=== PATIENT | male | born 1955 | race Caucasian/White ===

== ENCOUNTER 2017-08-19 18:13 | Inpatient (IN) | payer BC ==
[~2017-08-19] VITALS: Ht 175.3 cm; Wt 90.4 kg
[~2017-08-19 18:13] MED LIST: ALLO300T2 PO; ASPI81TA82 PO; CARV12.5 PO; DIGO0.25 PO; FURO20 PO; LISI-357 PO; WARF5TAB PO; ZOFR4TAB3 SL
[2017-08-19 18:23] VITALS: BP 119/56; PULSE 61; RESP 20; TEMP 97.8; O2SAT 91
[2017-08-19] MEDS ORDERED: CARV20 PO (18:38)
[2017-08-19] MEDS ORDERED: FURO1TAB60 PO (18:38)
[2017-08-19] MEDS ORDERED: WARF-23 PO (18:38)
[2017-08-19] MEDS ORDERED: ASPI-516 PO (18:38)
[2017-08-19] MEDS ORDERED: LISI-519 PO (18:38)
--- NOTE | 2017-08-19 18:38 | PD ---
HPI Chief Complaint: Respiratory Symptoms Time Seen by Provider: 18:37 (Michael Turner MD) Travel History International Travel<30 days: No Contact w/Intl Traveler<30days: No Traveled to known affect area: No (Micahel Turner MD) History of Present Illness HPI Patient 62-year-old male with a history of CHF followed by [id number] gate agent presents emergency department for evaluation of increasing pedal edema shortness of breath worsening over the past 4 days.. Patient states that he was feeling very lousy tonight and he was getting up to call 911 to bring him to the hospital when he felt very dizzy and fell hitting his head as well as his knee. He is unsure of any loss of consciousness. Denies any chest pain denies any abdominal pain nausea vomiting. Does not recall his last ejection fraction. He is on Coumadin for atrial fibrillation. Symptoms are moderate, context as above, duration is above, gradually worsening (Michael Turner MD) PFSH Past Medical History Hx Anticoagulant Therapy: Yes (WARFARIN) Atrial Fibrillation: Yes Cardiovascular Problems: Yes Diabetes: Yes (PT REPORT DOES NOT TAKE MED JUST DIET) Patient Takes Glucophage: No Diminished Hearing: No Hypertension: Yes Myocardial Infarction: Yes (STENTS) Influenza Vaccination: Yes (Michael Turner MD) Past Surgical History AICD: Yes Coronary Artery Bypass Graft: Yes (X3) (Michael Turner MD) Social History Alcohol Use: Yes (OCASSIONALLY) Tobacco Use: No (QUIT 20 YEARS AGO) Substance Use: No (Michael Turner MD) Allergies-Medications (Allergen,Severity, Reaction): Coded Allergies: No Known Allergies (Verified Adverse Reaction, Unknown, 08/19/17) Reported Meds & Prescriptions Reported Meds & Active Scripts Active Reported Digoxin 0.25 Mg Tab 0.25 Mg PO DAILY Aspirin 81 Mg Chew 81 Mg PO ONCE Lisinopril 5 Mg Tab 5 Mg PO DAILY Coreg Cr 24 HR (Carvedilol) 20 Mg Cap 20 Mg PO DAILY Warfarin 5 Mg Tab 5 Mg PO DAILY Lasix (Furosemide) 40 Mg Tab 40 Mg PO BID (Andrey Marie) Review of Systems Except as stated in HPI: all other systems reviewed are Neg (Michael Turner MD) Physical Exam Narrative GENERAL: Well-developed well-nourished, no obvious distress. SKIN: Focused skin assessment warm/dry. HEAD: Atraumatic. Normocephalic. EYES: Pupils equal and round. No scleral icterus. No injection or drainage. ENT: No nasal bleeding or discharge. Mucous membranes pink and moist. NECK: Trachea midline. No JVD. CARDIOVASCULAR: Regular rate and rhythm. No murmur appreciated. 2+ bilateral equal pulses in all 4 extremities. RESPIRATORY: faint bibasilar rales, breath sounds are equal bilaterally, mild increased work of breathing. GASTROINTESTINAL: Abdomen soft, non-tender, nondistended. Hepatic and splenic margins not palpable. MUSCULOSKELETAL: No obvious deformities. No clubbing. No cyanosis. Patient has significant edema of his lower extremities including, also some edema of his upper extremities of the hands. NEUROLOGICAL: Awake and alert. No obvious cranial nerve deficits. Motor grossly within normal limits. Normal speech. PSYCHIATRIC: Appropriate mood and affect; insight and judgment normal. (Michael Turner MD) Data Data Last Documented VS Vital Signs Date Time Temp Pulse Resp B/P (MAP) Pulse Ox O2 Delivery O2 Flow Rate FiO2 08/19/17 18:40 95 Nasal Cannula 3.00 08/19/17 18:40 20 08/19/17 18:31 64 08/19/17 18:23 97.8 119/56 (77) (Andrey Marie) Orders Orders Electrocardiogram (08/19/17 ) Electrocardiogram (08/19/17 18:37) Ckmb (Isoenzyme) Profile (08/19/17 18:37) Complete Blood Count With Diff (08/19/17 18:37) Comprehensive Metabolic Panel (08/19/17 18:37) Magnesium (Mg) (08/19/17 18:37) Prothrombin Time / Inr (Pt) (08/19/17 18:37) Act Partial Throm Time (Ptt) (08/19/17 18:37) Troponin I (08/19/17 18:37) Chest, Single Ap (08/19/17 18:37) Ecg Monitoring (08/19/17 18:37) Iv Access Insert/Monitor (08/19/17 18:37) Oximetry (08/19/17 18:37) Oxygen Administration (08/19/17 18:37) Aspirin Chew (Aspirin Chew) (08/19/17 18:45) Sodium Chloride 0.9% Flush (Ns Flush) (08/19/17 18:45) Furosemide Inj (Lasix Inj) (08/19/17 18:45) Ct Brain W/O Iv Contrast(Rout) (08/19/17 ) Knee, Complete (4vws) (08/19/17 ) (Andrey Marie) Labs Laboratory Tests Test 08/19/17 18:40 (Andrey Marie) MDM Medical Decision Making Medical Screen Exam Complete: Yes Emergency Medical Condition: Yes Differential Diagnosis CHF exacerbation, pulmonary edema, ACS, AMI, head injury, Narrative Course Patient roomed in emergency department found to have a room air sat of 89%. On 3 L nasal cannula niesha to 93%. He is not on home oxygen. He does have AICD suggesting more severe heart failure. Battery of test was ordered including basic labs cardiac markers, chest x-ray CT of the head and creatinine. Patient will be discussed with the oncoming provider Dr. Campos at 1900 to follow-up the workup and disposition the patient. (Michael Turner MD) Michael Turner MD Aug 19, 2017 18:38 Andrey Marie Aug 19, 2017 19:30
[2017-08-19] MEDS ORDERED: DIGO0.25 PO (18:39)
[2017-08-19 18:40] VITALS: RESP 20; O2SAT 95
[2017-08-19] MEDS ORDERED: ASPIRIN 81 MG CHEW TAB PO ONE (18:45)
[2017-08-19] MEDS ORDERED: SODIUM CHLORIDE 0.9% FLUSH 10 ML FLUSH IVF PRN (18:45)
[2017-08-19] MEDS ORDERED: FUROSEMIDE 100 MG/10 ML VIAL IV PUSH ONE (18:45)
[2017-08-19 19:10] VITALS: BP 112/59; PULSE 64; RESP 20; TEMP 97.8; O2SAT 95
[2017-08-19 19:30] LABS: AUTOMATED NEUTROPHIL # 3.7 TH/MM3 (1.8-7.7); BASOPHIL # 0.1 TH/MM3 (0-0.2); BASOPHIL % 1.1 % (0.0-2.0); EOSINOPHIL # 0.3 TH/MM3 (0-0.4); EOSINOPHIL % 4.6 % (0.0-4.0); HEMATOCRIT 29.3 % (39.0-51.0); MEAN CELL VOLUME 101.3 FL (80.0-100.0); MEAN CORPUSCULAR HEMOGLOBIN 36.6 PG (27.0-34.0); MONO % 17.6 % (0.0-8.0); NEUT % 60.7 % (16.0-70.0); PLATELET COUNT 139 TH/MM3 (150-450); RED CELL DISTRIBUTION WIDTH 14.5 % (11.6-17.2); WHITE BLOOD COUNT 6.1 TH/MM3 (4.0-11.0)
--- NOTE | 2017-08-19 19:31 | RADRPT ---
EXAM DATE/TIME: 08/19/2017 18:57 [facility] COMPARISON: No previous studies available for comparison. INDICATIONS : Shortness of breath. Syncope today. MEDICAL HISTORY : Cirrhosis of liver. SURGICAL HISTORY : Pacemaker. Triple bypass, ENCOUNTER: Initial ACUITY: 1 day PAIN SCORE: 0/10 LOCATION: Bilateral chest FINDINGS: The patient is status post sternotomy. Heart size is enlarged. There is a pacing device/AICD in place from a left subclavian approach. The lungs are grossly clear. No effusion is seen. There is degenera tive change with hypertrophy at the left humeral head. There is also suspected loose bodies inferior to the left humeral head and in the subscapularis fossa at the left glenohumeral joint. CONCLUSION: 1. Cardiomegaly. The patient is status post sternotomy and has a pacing/AICD device in place. 2. Degenerative change and loose bodies of the left glenohumeral joint. Ralph English MD on August 19, 2017 at 19:27 Board Certified Radiologist. This report was verified electronically.
--- NOTE | 2017-08-19 19:31 | RADRPT ---
EXAM DATE/TIME: 08/19/2017 18:58 [facility] COMPARISON: No previous studies available for comparison. INDICATIONS : Syncope today. Knee pain. MEDICAL HISTORY : None. SURGICAL HISTORY : None. ENCOUNTER: Initial ACUITY: 1 day PAIN SCORE: 3/10 LOCATION: Right abrasion on top of knee FINDINGS: Four view examination of the right knee demonstrates no evidence of fracture or dislocation. Bony mi neralization is normal. The articular surfaces are intact. The suprapatellar soft tissues have a no rmal configuration. Vascular calcifications are seen. Clips are seen in the medial soft tissues. CONCLUSION: No acute disease. Ralph English MD on August 19, 2017 at 19:30 Board Certified Radiologist. This report was verified electronically.
[2017-08-19 19:33] LABS: MEAN CORPUSCULAR HGB CONC 36.1 % (32.0-36.0)
--- NOTE | 2017-08-19 19:33 | RADRPT ---
EXAM DATE/TIME: 08/19/2017 18:56 [facility] COMPARISON: No previous studies available for comparison. INDICATIONS : Trauma, fall. Hit forehead. RADIATION DOSE: 56.35 CTDIvol (mGy) MEDICAL HISTORY : Hypertension. Diabetes mellitus type 2. SURGICAL HISTORY : None. ENCOUNTER: Initial ACUITY: 1 day PAIN SCALE: 0/10 LOCATION: cranial TECHNIQUE: Multiple contiguous axial images were obtained of the head. Using automated exposure control and adj ustment of the mA and/or kV according to patient size, radiation dose was kept as low as reasonably a chievable to obtain optimal diagnostic quality images. DICOM format image data is available electro nically for review and comparison. FINDINGS: CEREBRUM: The ventricles are normal for age. No evidence of midline shift, mass lesion, hemorrhage or acute in farction. No extra-axial fluid collections are seen. POSTERIOR FOSSA: The cerebellum and brainstem are intact. The 4th ventricle is midline. The cerebellopontine angle i s unremarkable. EXTRACRANIAL: The visualized portion of the orbits is intact. SKULL: The calvaria is intact. No evidence of skull fracture. CONCLUSION: Normal examination. Ralph English MD on August 19, 2017 at 19:31 Board Certified Radiologist. This report was verified electronically.
[2017-08-19 19:34] LABS: HEMO FLAGS AUTO DIFF
[2017-08-19 19:42] LABS: INTERNATIONAL NORMALIZED RATIO 2.6 RATIO; PROTHROMBIN TIME - PATIENT 29.6 SEC (9.8-11.6)
[2017-08-19 19:53] LABS: ANION GAP 9 MEQ/L (5-15); AST (GOT) 29 U/L (15-37); BICARBONATE 20.9 MEQ/L (21.0-32.0); BLOOD UREA NITROGEN 53 MG/DL (7-18); CHLORIDE 100 MEQ/L (98-107); GLOMERULAR FILTRATION RATE 26 ML/MIN (>89); MAGNESIUM 2.3 MG/DL (1.5-2.5); SODIUM (NA) 130 MEQ/L (136-145)
[2017-08-19 19:54] LABS: APTT (PATIENT) 40.3 SEC (24.3-30.1)
[2017-08-19 19:59] LABS: ALKALINE PHOSPHATASE 143 U/L (45-117); ALT (GPT) 30 U/L (12-78); CREATINE KINASE 238 U/L (39-308); TOTAL BILIRUBIN ADULT 1.9 MG/DL (0.2-1.0)
[2017-08-19 20:10] VITALS: BP 112/57; PULSE 62; RESP 19; TEMP 98; O2SAT 94
[2017-08-19 20:12] LABS: CKMB 1.9 NG/ML (0.5-3.6)
[2017-08-19 20:15] LABS: PLATELET ESTIMATE SMEAR LOW (NORMAL); PLATELET MORPHOLOGY ENLARGED (NORMAL); SCAN/DIFF AUTO DIFF CONFIRMED
--- NOTE | 2017-08-19 20:36 | PD ---
Physical Exam Date Seen by Provider: Aug 19, 2017 Time Seen by Provider: 19:30 Narrative Patient signed out to me by Dr. Turner, please see Dr. Turner's note for further details. Here for worsening shortness of breath, dyspnea on exertion, syncope, has been given Lasix, awaiting further lab work and planning to admit for further treatment. Laboratory Tests Test 08/19/17 18:40 Red Blood Count 2.90 MIL/MM3 (4.50-5.90) Hemoglobin 10.6 GM/DL (13.0-17.0) Hematocrit 29.3 % (39.0-51.0) Mean Corpuscular Volume 101.3 FL (80.0-100.0) Mean Corpuscular Hemoglobin 36.6 PG (27.0-34.0) Mean Corpuscular Hemoglobin Concent 36.1 % (32.0-36.0) Platelet Count 139 TH/MM3 (150-450) Monocytes (%) (Auto) 17.6 % (0.0-8.0) Eosinophils (%) (Auto) 4.6 % (0.0-4.0) Monocytes # (Auto) 1.1 TH/MM3 (0-0.9) Platelet Estimate LOW (NORMAL) Platelet Morphology Comment ENLARGED (NORMAL) Prothrombin Time 29.6 SEC (9.8-11.6) Activated Partial Thromboplast Time 40.3 SEC (24.3-30.1) Blood Urea Nitrogen 53 MG/DL (7-18) Creatinine 2.50 MG/DL (0.60-1.30) Total Protein 8.8 GM/DL (6.4-8.2) Albumin 3.3 GM/DL (3.4-5.0) Alkaline Phosphatase 143 U/L (45-117) Total Bilirubin 1.9 MG/DL (0.2-1.0) Sodium Level 130 MEQ/L (136-145) Carbon Dioxide Level 20.9 MEQ/L (21.0-32.0) Estimat Glomerular Filtration Rate 26 ML/MIN (>89) Last 24 hours Impressions Chest X-Ray 08/19/17 [id number] Signed Impressions: Service Date/Time: Saturday, August 19, 2017 18:57 - CONCLUSION: 1. Cardiomegaly. The patient is status post sternotomy and has a pacing/AICD device in place. 2. Degenerative change and loose bodies of the left glenohumeral joint. Ralph English MD Knee X-Ray 08/19/17 0000 Signed Impressions: Service Date/Time: Saturday, August 19, 2017 18:58 - CONCLUSION: No acute disease. Ralph English MD Head CT 08/19/17 0000 Signed Impressions: Service Date/Time: Saturday, August 19, 2017 18:56 - CONCLUSION: Normal examination. Ralph English MD CT the brain is negative. Patient's lab work reveals worsening kidney functions , concerning for acute renal failure as well as underlying CHF. Planning to admit for further treatment. Case is discussed with Dr. Johnson for admission. Data Data Last Documented VS Vital Signs Date Time Temp Pulse Resp B/P (MAP) Pulse Ox O2 Delivery O2 Flow Rate FiO2 08/19/17 19:10 97.8 64 20 112/59 (76) 95 Nasal Cannula 3.00 Orders Orders Electrocardiogram (08/19/17 ) Electrocardiogram (08/19/17 18:37) Ckmb (Isoenzyme) Profile (08/19/17 18:37) Complete Blood Count With Diff (08/19/17 18:37) Comprehensive Metabolic Panel (08/19/17 18:37) Magnesium (Mg) (08/19/17 18:37) Prothrombin Time / Inr (Pt) (08/19/17 18:37) Act Partial Throm Time (Ptt) (08/19/17 18:37) Troponin I (08/19/17 18:37) Chest, Single Ap (08/19/17 18:37) Ecg Monitoring (08/19/17 18:37) Iv Access Insert/Monitor (08/19/17 18:37) Oximetry (08/19/17 18:37) Oxygen Administration (08/19/17 18:37) Aspirin Chew (Aspirin Chew) (08/19/17 18:45) Sodium Chloride 0.9% Flush (Ns Flush) (08/19/17 18:45) Furosemide Inj (Lasix Inj) (08/19/17 18:45) Ct Brain W/O Iv Contrast(Rout) (08/19/17 ) Knee, Complete (4vws) (08/19/17 ) CKMB (08/19/17 18:40) CKMB% (08/19/17 18:40) Admit Order (Ed Use Only) (08/19/17 20:34) Labs Laboratory Tests Test 08/19/17 18:40 White Blood Count 6.1 TH/MM3 Red Blood Count 2.90 MIL/MM3 Hemoglobin 10.6 GM/DL Hematocrit 29.3 % Mean Corpuscular Volume 101.3 FL Mean Corpuscular Hemoglobin 36.6 PG Mean Corpuscular Hemoglobin Concent 36.1 % Red Cell Distribution Width 14.5 % Platelet Count 139 TH/MM3 Mean Platelet Volume 9.5 FL Neutrophils (%) (Auto) 60.7 % Lymphocytes (%) (Auto) 16.0 % Monocytes (%) (Auto) 17.6 % Eosinophils (%) (Auto) 4.6 % Basophils (%) (Auto) 1.1 % Neutrophils # (Auto) 3.7 TH/MM3 Lymphocytes # (Auto) 1.0 TH/MM3 Monocytes # (Auto) 1.1 TH/MM3 Eosinophils # (Auto) 0.3 TH/MM3 Basophils # (Auto) 0.1 TH/MM3 CBC Comment AUTO DIFF Differential Comment AUTO DIFF CONFIRMED Platelet Estimate LOW Platelet Morphology Comment ENLARGED Prothrombin Time 29.6 SEC Prothromb Time International Ratio 2.6 RATIO Activated Partial Thromboplast Time 40.3 SEC Blood Urea Nitrogen 53 MG/DL Creatinine 2.50 MG/DL Random Glucose 99 MG/DL Total Protein 8.8 GM/DL Albumin 3.3 GM/DL Calcium Level 8.5 MG/DL Magnesium Level 2.3 MG/DL Alkaline Phosphatase 143 U/L Aspartate Amino Transf (AST/SGOT) 29 U/L Alanine Aminotransferase (ALT/SGPT) 30 U/L Total Bilirubin 1.9 MG/DL Sodium Level 130 MEQ/L Potassium Level 4.0 MEQ/L Chloride Level 100 MEQ/L Carbon Dioxide Level 20.9 MEQ/L Anion Gap 9 MEQ/L Estimat Glomerular Filtration Rate 26 ML/MIN Total Creatine Kinase 238 U/L Creatine Kinase MB 1.9 NG/ML Troponin I 0.02 NG/ML [facility] Medical Record Reviewed: Yes Supervised Visit with TARIK: No Diagnosis Primary Impression: CHF exacerbation Additional Impression: Acute renal failure (ARF) Admitting Information Admitting Physician Requests: Admit Gina Munoz MD Aug 19, 2017 20:36
--- NOTE | 2017-08-19 20:38 | HHI.HP ---
[facility] Unknown Admission Diagnosis CHF exacerbation/syncope/acute renal failure Diagnoses: (1) CHF (congestive heart failure) Diagnosis: Principal (2) TOMMY (acute kidney injury) Diagnosis: Principal (3) Fall Diagnosis: Principal (4) A-fib Diagnosis: Principal (5) Thrombocytopenia Diagnosis: Principal Travel History International Travel<30 Days: No Contact w/Intl Traveler <30 Da: No Traveled to Known Affected Are: No History of Present Illness This is a 62-year-old male with a PMH of HTN, CHF (Unknown EF), A. fib on Coumadin and Diet Controlled DM who presented to the ER w/ complaints of dizziness, SOB and progressive lower extremity edema x3-4 days. 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 Denies recent changes to medications, reports compliance w/ meds. States dizziness worse w/ standing, tonight had near syncopal event w/ fall, hit head. On arrival, BP 119/56, HR 61, O2 sat 91 % on RA, Afebrile. Hemoglobin 10.6, previously 15.1 on 11/13/15. Platelets 139 , previously 178. Creatinine 2.50, producing 1.18 on 11/13/15. Troponin negative. INR 2.6. CXR with cardiomegaly. CT Head normal. Knee X-ray with no acute findings. S/p Lasix 80mg IV in ER. Review of Systems Except as stated in HPI: all other systems reviewed are Neg ROS: 14 point review of systems otherwise negative. Past Family Social History Past Medical History PMH: HTN, CHF (Unknown EF), A. fib on Coumadin and Diet Controlled DM Past Surgical History PAST SURGICAL HISTORY: AICD, CABG Allergies: Coded Allergies: No Known Allergies (Verified Allergy, Unknown, 08/19/17) Family History PAST FAMILY HISTORY: Reviewed. No h/o DM or CAD Social History PAST SOCIAL HISTORY: Occasional alcohol. Negative for tobacco or drugs. Physical Exam Vital Signs Vital Signs Date Time Temp Pulse Resp B/P (MAP) Pulse Ox O2 Delivery O2 Flow Rate FiO2 08/19/17 19:10 97.8 64 20 112/59 (76) 95 Nasal Cannula 3.00 08/19/17 18:40 95 Nasal Cannula 3.00 08/19/17 18:40 20 95 Nasal Cannula 3.00 08/19/17 18:31 64 20 95 Nasal Cannula 3.00 08/19/17 18:23 97.8 61 20 119/56 (77) 91 Physical Exam PE: GENERAL: Pleasant middle-aged white male in no acute distress. HEENT: PERRLA, EOMI. No scleral icterus or conjunctival pallor. No lid lag or facial droop. +abrasion to forehead. CARDIOVASCULAR: Regular rate and rhythm. No obvious murmurs to auscultation. No chest tenderness to palpation. RESPIRATORY: No obvious rhonchi or wheezing. Clear to auscultation. Breath sounds equal bilaterally. GASTROINTESTINAL: Abdomen soft, non-tender, nondistended. BS normal. MUSCULOSKELETAL: Extremities without clubbing, cyanosis. 2-3+ edema bilateral lower extremities. No obvious deformities. NEUROLOGICAL: Awake, alert and oriented x4. No focal neurologic deficits. Moving both upper and lower extremities spontaneously. Laboratory Laboratory Tests Test 08/19/17 18:40 White Blood Count 6.1 Red Blood Count 2.90 Hemoglobin 10.6 Hematocrit 29.3 Mean Corpuscular Volume 101.3 Mean Corpuscular Hemoglobin 36.6 Mean Corpuscular Hemoglobin Concent 36.1 Red Cell Distribution Width 14.5 Platelet Count 139 Mean Platelet Volume 9.5 Neutrophils (%) (Auto) 60.7 Lymphocytes (%) (Auto) 16.0 Monocytes (%) (Auto) 17.6 Eosinophils (%) (Auto) 4.6 Basophils (%) (Auto) 1.1 Neutrophils # (Auto) 3.7 Lymphocytes # (Auto) 1.0 Monocytes # (Auto) 1.1 Eosinophils # (Auto) 0.3 Basophils # (Auto) 0.1 CBC Comment AUTO DIFF Differential Comment AUTO DIFF CONFIRMED Platelet Estimate LOW Platelet Morphology Comment ENLARGED Prothrombin Time 29.6 Prothromb Time International Ratio 2.6 Activated Partial Thromboplast Time 40.3 Blood Urea Nitrogen 53 Creatinine 2.50 Random Glucose 99 Total Protein 8.8 Albumin 3.3 Calcium Level 8.5 Magnesium Level 2.3 Alkaline Phosphatase 143 Aspartate Amino Transf (AST/SGOT) 29 Alanine Aminotransferase (ALT/SGPT) 30 Total Bilirubin 1.9 Sodium Level 130 Potassium Level 4.0 Chloride Level 100 Carbon Dioxide Level 20.9 Anion Gap 9 Estimat Glomerular Filtration Rate 26 Total Creatine Kinase 238 Creatine Kinase MB 1.9 Troponin I 0.02 Result Diagram: 08/19/17183908/19/171839 Caprini VTE Risk Assessment Caprini VTE Risk Assessment: Mod/High Risk (score >= 2) Caprini Risk Assessment Model Point Value = 1 Point Value = 2 Point Value = 3 Point Value = 5 Age 41-60 Minor surgery BMI > 25 kg/m2 Swollen legs Varicose veins or History of unexplained or recurrent spontaneous Oral contraceptives or hormone replacement Sepsis (< 1 month) Serious lung disease, including pneumonia (< 1 month) Abnormal pulmonary function Acute myocardial infarction Congestive heart failure (< 1 month) History of inflammatory bowel disease Medical patient at bed rest Age 61-74 Arthroscopic surgery Major open surgery (> 45 min) Laparoscopic surgery (> 45 min) Malignancy Confined to bed (> 72 hours) Immobilizing plaster cast Central venous access Age >= 75 History of VTE Family history of VTE Factor V Leiden Prothrombin [id number] Lupus anticoagulant Anticardiolipin antibodies Elevated serum homocysteine Heparin-induced thrombocytopenia Other congenital or acquired thrombophilia Stroke (< 1 month) Elective arthroplasty Hip, pelvis, or leg fracture Acute spinal cord injury (< 1 month) Prophylaxis Regimen Total Risk Factor Score Risk Level Prophylaxis Regimen 0-1 Low Early ambulation 2 Moderate Order ONE of the following: *Sequential Compression Device (SCD) *Heparin 5000 units SQ BID 3-4 Higher Order ONE of the following medications: *Heparin 5000 units SQ TID *Enoxaparin/Lovenox 40 mg SQ daily (WT < 150 kg, CrCl > 30 mL/min) *Enoxaparin/Lovenox 30 mg SQ daily (WT < 150 kg, CrCl > 10-29 mL/min) *Enoxaparin/Lovenox 30 mg SQ BID (WT < 150 kg, CrCl > 30 mL/min) AND/OR *Sequential Compression Device (SCD) 5 or more Highest Order ONE of the following medications: *Heparin 5000 units SQ TID (Preferred with Epidurals) *Enoxaparin/Lovenox 40 mg SQ daily (WT < 150 kg, CrCl > 30 mL/min) *Enoxaparin/Lovenox 30 mg SQ daily (WT < 150 kg, CrCl > 10-29 mL/min) *Enoxaparin/Lovenox 30 mg SQ BID (WT < 150 kg, CrCl > 30 mL/min) AND *Sequential Compression Device (SCD) Assessment and Plan Problem List: (1) CHF (congestive heart failure) ICD Code: I50.9 - Heart failure, unspecified (2) Fall ICD Code: W19.XXXA - Unspecified fall, initial encounter (3) Thrombocytopenia ICD Code: D69.6 - Thrombocytopenia, unspecified (4) A-fib ICD Code: I48.91 - Unspecified atrial fibrillation (5) TOMMY (acute kidney injury) ICD Code: N17.9 - Acute kidney failure, unspecified Assessment and Plan A/P: 1. CHF: Acute on Chronic. Unknown EF. CXR w/ no acute findings, images reviewed by me, significant lower extremity edema bilaterally. S/p Lasix 80mg IV in ER, caution w/ renal function. Continue w/ diuresis, Monitor I/O. Check Echo. 2. Fall: s/p near syncopal event w/ fall/head injury secondary to dizziness upon standing, likely from over-diuresis. +forehead and knee abrasion, superficial. CT Head w/ no acute findings, Knee X-ray negative for fracture, images reviewed by me. 3. TOMMY: Creatinine 2.50, previously 1.18 on 11/13/15, gentle hydration-caution w/ CHF. Repeat labs in am. Monitor I/O as above. Hold Lisinopril in light of TOMMY. 4. A-fib: Chronic. Resume home Digoxin. On Coumadin, INR 2.6, resume Coumadin, repeat labs in am. 5. Thrombocytopenia: Platelets 139, previously 178 on 11/13/15. No active bleeding. Will monitor closely in light of anticoagulation. Repeat labs in am. 6. DVT Prophylaxis: Resume home Coumadin 7. Social work for d/c planning as needed. 8. Case discussed w/ ER physician at length. Physician Certification 2 Midnight Certification Type: Admission for Inpatient Services Order for Inpatient Services The services are ordered in accordance with Medicare regulations or non- Medicare payer requirements, as applicable. In the case of services not specified as inpatient-only, they are appropriately provided as inpatient services in accordance with the 2-midnight benchmark. Estimated LOS (days): 2 days is the estimated time the patient will need to remain in the hospital, assuming treatment plan goals are met and no additional complications. Post-Hospital Plan: Not yet determined Shital Johnson MD Aug 19, 2017 20:38
[2017-08-19] MEDS ORDERED: ACETAMINOPHEN/HYDROcodone 325 MG/5 MG TAB PO PRN (20:45)
[2017-08-19] MEDS ORDERED: LACTULOSE SYRUP 20 GM/30 ML CUP PO PRN (20:45)
[2017-08-19] MEDS ORDERED: ONDANSETRON HCL 4 MG/2 ML VIAL IVP PRN (20:45)
[2017-08-19] MEDS ORDERED: SENNOSIDES 8.6 MG TAB PO PRN (20:45)
[2017-08-19] MEDS ORDERED: MORPHINE SULFATE 4 MG/ML INJ IV PUSH PRN (20:45)
[2017-08-19] MEDS ORDERED: ACETAMINOPHEN 325 MG TAB PO PRN (20:45)
[2017-08-19] MEDS ORDERED: MAGNESIUM HYDROXIDE SUSP 30 ML CUP PO PRN (20:45)
[2017-08-19] MEDS ORDERED: SODIUM CHLORIDE 0.9% FLUSH 10 ML FLUSH IV FLUSH PRN (20:45)
[2017-08-19] MEDS ORDERED: ASPIRIN 81 MG CHEW TAB PO SCH (20:45)
[2017-08-19] MEDS ORDERED: BISACODYL 10 MG SUPP RECTAL PRN (20:45)
[2017-08-19] MEDS ORDERED: DEXT 5%-NACL 0.9% 500 ML INJ 500 ML IV ONE (21:15)
[2017-08-19] MEDS: SODIUM CHLORIDE 0.9% FLUSH 10 ML FLUSH IV FLUSH SCH (21:28)
[2017-08-19] MEDS: DOCUSATE SODIUM 50 MG/SENNA 8.6 MG TAB PO SCH (21:28)
[2017-08-19 21:29] VITALS: BP 104/69; PULSE 59; RESP 20; TEMP 97.9; O2SAT 95
[2017-08-19 23:00] VITALS: PULSE 57
[2017-08-20] VITALS (7 sets, daily range): BP systolic 90–121; BP diastolic 50–59; PULSE 54–75; RESP 16–20; TEMP 97.3–97.9; O2SAT 90–94
[2017-08-20] MEDS ORDERED: DEXT 5%-NACL 0.45% 500 ML INJ 500 ML IV ONE (05:00)
[2017-08-20 07:31] LABS: AUTOMATED NEUTROPHIL # 2.8 TH/MM3 (1.8-7.7); EOSINOPHIL # 0.3 TH/MM3 (0-0.4); EOSINOPHIL % 5.3 % (0.0-4.0); HEMATOCRIT 29.2 % (39.0-51.0); HEMO FLAGS DIFF FINAL; LYMPH % 23.4 % (9.0-44.0); LYMPHOCYTE # 1.1 TH/MM3 (1.0-4.8); MEAN CELL VOLUME 100.3 FL (80.0-100.0); MEAN CORPUSCULAR HEMOGLOBIN 34.7 PG (27.0-34.0); MEAN CORPUSCULAR HGB CONC 34.6 % (32.0-36.0); MONO % 14.1 % (0.0-8.0); NEUT % 56.2 % (16.0-70.0); PLATELET COUNT 134 TH/MM3 (150-450); RED BLOOD COUNT 2.92 MIL/MM3 (4.50-5.90); RED CELL DISTRIBUTION WIDTH 14.1 % (11.6-17.2); WHITE BLOOD COUNT 4.9 TH/MM3 (4.0-11.0)
[2017-08-20 07:34] LABS: INTERNATIONAL NORMALIZED RATIO 2.8 RATIO; PROTHROMBIN TIME - PATIENT 32.3 SEC (9.8-11.6)
[2017-08-20 08:02] LABS: ANION GAP 10 MEQ/L (5-15); AST (GOT) 28 U/L (15-37); BICARBONATE 19.8 MEQ/L (21.0-32.0); BLOOD UREA NITROGEN 52 MG/DL (7-18); CHLORIDE 103 MEQ/L (98-107); GLOMERULAR FILTRATION RATE 28 ML/MIN (>89); POTASSIUM 3.5 MEQ/L (3.5-5.1); SODIUM (NA) 133 MEQ/L (136-145)
[2017-08-20 08:03] LABS: ALT (GPT) 26 U/L (12-78)
[2017-08-20 08:07] LABS: ALKALINE PHOSPHATASE 115 U/L (45-117)
[2017-08-20 08:55] LABS: MAGNESIUM 2.2 MG/DL (1.5-2.5)
[2017-08-20] MEDS: FUROSEMIDE 40 MG/4 ML VIAL IV PUSH SCH ×2 (09:00→17:43)
[2017-08-20] MEDS: CARVEDILOL 6.25 MG TAB PO SCH ×2 (09:00→21:00)
[2017-08-20] MEDS: SODIUM CHLORIDE 0.9% FLUSH 10 ML FLUSH IV FLUSH SCH ×2 (09:00→21:41)
[2017-08-20] MEDS ORDERED: WARFARIN SOD 5 MG TAB PO SCH (09:00)
--- NOTE | 2017-08-20 09:21 | EKG ---
Date Performed: 08/19/2017 Time Performed: 18:32:42 PTAGE: 62 years EKG: ATRIAL FIBRILLATION BORDERLINE RIGHT AXIS DEVIATION LOW QRS VOLTAGE IN EXTREMITY LEADS ST D EVIATION AND MODERATE T-WAVE ABNORMALITY, CONSIDER LATERAL ISCHEMIA Compared to prior tracing no sign ificant change ABNORMAL ECG PREVIOUS TRACING : 08/19/2017 18.31 DOCTOR: Luis Bennett Interpretating Date/Time 08/22/2017 07:07:11
[2017-08-20] MEDS: DOCUSATE SODIUM 50 MG/SENNA 8.6 MG TAB PO SCH ×2 (10:07→21:40)
[2017-08-20] MEDS: ASPIRIN 81 MG CHEW TAB PO SCH (10:08)
[2017-08-20] MEDS: DIGOXIN 0.25 MG TAB PO SCH (10:08)
--- NOTE | 2017-08-20 11:52 | HHI.PR ---
Subjective Remarks Follow-up for CHF exacerbation and questionable acute on chronic renal sufficiency Patient stated that after Lasix was given history breathing has improved drastically. He continues to be short of breath but with great improvement. Positive dry cough. Remains afebrile. [place] He stated that he is on Lasix 40 mg by mouth twice a day at home. Patient also admits to eating out a lot. He stated that he was told by multiple doctors that he eats too much sodium. His nurse is at the bedside during the interview. Objective Vitals Vital Signs Date Time Temp Pulse Resp B/P (MAP) Pulse Ox O2 Delivery O2 Flow Rate FiO2 08/20/17 08:00 58 08/20/17 08:00 Nasal Cannula 3.50 08/20/17 04:00 97.9 60 16 90/50 (63) 92 08/20/17 00:00 97.3 61 18 96/56 (69) 94 08/19/17 23:00 57 08/19/17 21:56 08/19/17 21:29 97.9 59 20 104/69 (81) 95 Nasal Cannula 3.00 08/19/17 20:10 98.0 62 19 112/57 (75) 94 08/19/17 20:00 94 Nasal Cannula 3.50 08/19/17 19:10 97.8 64 20 112/59 (76) 95 Nasal Cannula 3.00 08/19/17 18:40 95 Nasal Cannula 3.00 08/19/17 18:40 20 95 Nasal Cannula 3.00 08/19/17 18:31 64 20 95 Nasal Cannula 3.00 08/19/17 18:23 97.8 61 20 119/56 (77) 91 I/O 08/19/17 08/19/17 08/19/17 08/20/17 08/20/17 08/20/17 07:00 15:00 23:00 07:00 15:00 23:00 Intake Total 240 ml Output Total 600 ml 1350 ml Balance -600 ml -1110 ml Intake Oral 240 ml Output Urine Total 600 ml 1350 ml # Voids 1 # Bowel Movements 0 0 Result Diagram: 08/20/1761208/20/17612 Objective Remarks GENERAL: in NAD NECK: Supple, trachea midline. No JVD or lymphadenopathy. CARDIOVASCULAR: Regular rate and rhythm without murmurs, gallops, or rubs. RESPIRATORY: No accessory muscle use. GASTROINTESTINAL: Abdomen soft, non-tender, nondistended. MUSCULOSKELETAL: No cyanosis, trace to +1 lower extremity edema. Medications and IVs Current Medications Aspirin (Aspirin Chew) 324 mg ONCE ONCE PO Last administered on 08/19/17 18: 46; Start 08/19/17 at 18:45; Stop 08/19/17 at 18:46; Status DC Sodium Chloride (NS Flush) 2 ml UNSCH PRN IVF FLUSH AFTER USING IV ACCESS Last administered on 08/19/17 18:46; Start 08/19/17 at 18:45; Stop 08/20/17 at 05 :06; Status DC Furosemide (Lasix Inj) 80 mg ONCE ONCE IV PUSH Last administered on 18:46; Start 08/19/17 at 18:45; Stop 08/19/17 at 18:46; Status DC Furosemide (Lasix Inj) 40 mg BID@,18 IV PUSH ; Start 08/20/17 at 09:00 Sodium Chloride (NS Flush) 2 ml UNSCH PRN IV FLUSH FLUSH AFTER USING IV ACCESS ; Start 08/19/17 at 20:45 Sodium Chloride (NS Flush) 2 ml BID IV FLUSH Last administered on 08/20/17 09 :00; Start 08/19/17 at 21:00 Ondansetron HCl (Zofran Inj) 4 mg Q6H PRN IVP NAUSEA OR VOMITING; Start at 20:45 Acetaminophen (Tylenol) 650 mg Q6H PRN PO FEVER/PAIN SCALE 1 TO 2; Start 08/19 at 20:45 Acetaminophen/ Hydrocodone Bitart ([place] 5-325 Mg) 1 tab Q4H PRN PO PAIN SCALE 3 TO 5; Start 08/19/17 at 20:45 Morphine Sulfate (Morphine Inj) 2 mg Q3H PRN IV PUSH PAIN SCALE 6-10; Start at 20:45 Senna/Docusate Sodium (Dana-Colace) 1 tab BID PO Last administered on 10:07; Start 08/19/17 at 21:00 Magnesium Hydroxide (Milk Of Magnesia Liq) 30 ml Q12H PRN PO Mild constipation ; Start 08/19/17 at 20:45 Sennosides (Senokot) 17.2 mg Q12H PRN PO Moderate constipation; Start at 20:45 Bisacodyl (Dulcolax Supp) 10 mg DAILY PRN RECTAL SEVERE CONSITIPATION; Start 08/19/17 at 20:45 Lactulose (Lactulose Liq) 30 ml DAILY PRN PO SEVERE CONSITIPATION; Start 08/19 at 20:45 Aspirin (Aspirin Chew) 81 mg ONCE PO ; Start 08/19/17 at 20:45; Stop 08/19/17 at 20:45; Status DC Digoxin (Lanoxin) 0.25 mg DAILY PO Last administered on 08/20/17 10:08; Start 08/20/17 at 09:00 Warfarin Sodium (Coumadin) 5 mg DAILY PO ; Start 08/20/17 at 09:00; Stop 08/20 at 09:00; Status DC Carvedilol (Coreg) 6.25 mg BID PO ; Start 08/20/17 at 09:00 Aspirin (Aspirin Chew) 81 mg DAILY PO Last administered on 08/20/17 10:08; Start 08/20/17 at 09:00 Warfarin Sodium (Coumadin) 5 mg DAILY@1600 PO ; Start 08/20/17 at 16:00 Dextrose/Sodium Chloride 500 ml @ 500 mls/hr BOLUS ONCE IV Last administered on 08/19/17 21:28; Start 08/19/17 at 21:15; Stop 08/19/17 at 22:14; Status DC Dextrose/Sodium Chloride 500 ml @ 500 mls/hr BOLUS ONCE IV Last administered on 08/20/17 05:16; Start 08/20/17 at 05:00; Stop 08/20/17 at 05:59; Status DC Pharmacy Profile Note 0 ml @ 0 mls/hr UNSCH OTHER ; Start 08/20/17 at 08:15 A/P Problem List: (1) CHF (congestive heart failure) ICD Code: I50.9 - Heart failure, unspecified (2) Fall ICD Code: W19.XXXA - Unspecified fall, initial encounter (3) Thrombocytopenia ICD Code: D69.6 - Thrombocytopenia, unspecified (4) A-fib ICD Code: I48.91 - Unspecified atrial fibrillation (5) TOMMY (acute kidney injury) ICD Code: N17.9 - Acute kidney failure, unspecified Assessment and Plan 62-year-old male past medical history of CHF who presented with shortness of breathing and increased lower extremity edema Acute on chronic CHF exacerbation -Unknown EF. CXR w/ no acute findings with significant lower extremity edema bilaterally. S/p Lasix 80mg IV in ER, caution w/ renal function. Continue w/ diuresis, Monitor I/O. -Echo already ordered pending echo. -Clinically patient is improving. Continue with Lasix 40 mg IV twice a day. Home dosage is 40 mg by mouth twice a day. -Most likely secondary to noncompliance with diet. Sensitive education given on low sodium diet. Acute respiratory failure with hypoxia -See treatment as above. Patient is not on any home oxygen. Will need to wean off of oxygen as tolerated. Fall: - s/p near syncopal event w/ fall/head injury secondary to dizziness upon standing, likely from over-diuresis. - +forehead and knee abrasion, superficial. CT Head w/ no acute findings, Knee X-ray negative for fracture. -Consult physical therapist. TOMMY: Creatinine 2.50, previously 1.18 on 11/13/15 -Unsure of new baseline. Will try to obtain medical records from his PCP at [place]. This might be difficult since it is the weekend. -Continue to hold MELISA. -Strict ins and outs. Avoid nephrotoxins. Continue monitor creatinine. Adjust accordingly. A-fib: Chronic. -Continue with digoxin and Coumadin. Chronic anticoagulation -Due to atrial fibrillation. continue Monitor INR. Continue with Coumadin. Thrombocytopenia: - Platelets 139, previously 178 on 11/13/15. No active bleeding. -Platelets are stable. DVT Prophylaxis: On Coumadin. Soco Archer MD Aug 20, 2017 11:52
[2017-08-20] MEDS: WARFARIN SOD 5 MG TAB PO SCH (17:43)
[2017-08-21] VITALS (7 sets, daily range): BP systolic 108–121; BP diastolic 55–60; PULSE 57–73; RESP 18–20; TEMP 97.1–98.2; O2SAT 86–94
[2017-08-21] MEDS: DIGOXIN 0.25 MG TAB PO SCH (09:08)
[2017-08-21] MEDS: DOCUSATE SODIUM 50 MG/SENNA 8.6 MG TAB PO SCH ×2 (09:08→22:13)
[2017-08-21] MEDS: ASPIRIN 81 MG CHEW TAB PO SCH (09:08)
[2017-08-21] MEDS: CARVEDILOL 6.25 MG TAB PO SCH ×2 (09:08→22:13)
[2017-08-21] MEDS: FUROSEMIDE 40 MG/4 ML VIAL IV PUSH SCH ×2 (09:09→18:35)
[2017-08-21] MEDS: SODIUM CHLORIDE 0.9% FLUSH 10 ML FLUSH IV FLUSH SCH ×2 (09:09→22:14)
[2017-08-21 09:12] LABS: HEMATOCRIT 30.7 % (39.0-51.0); MEAN CELL VOLUME 101.9 FL (80.0-100.0); MEAN CORPUSCULAR HEMOGLOBIN 34.8 PG (27.0-34.0); MEAN CORPUSCULAR HGB CONC 34.1 % (32.0-36.0); PLATELET COUNT 140 TH/MM3 (150-450); RED BLOOD COUNT 3.01 MIL/MM3 (4.50-5.90); RED CELL DISTRIBUTION WIDTH 14.3 % (11.6-17.2); REVIEW FLAG FINAL; WHITE BLOOD COUNT 5.1 TH/MM3 (4.0-11.0)
[2017-08-21 09:47] LABS: BICARBONATE 19.6 MEQ/L (21.0-32.0); POTASSIUM 4.1 MEQ/L (3.5-5.1)
[2017-08-21] MEDS ORDERED: SODIUM CHLORIDE 0.65% NASAL DRP/SPRY 30 ML BTL EACH NARE PRN (11:00)
--- NOTE | 2017-08-21 11:00 | HHI.PR ---
Subjective Remarks Follow-up for CHF exacerbation Patient complaining of a nosebleed. He is holding pressures to nose. It is improving. I asked patient to release the pressure and there was no bleeding. Patient stated that shortness of breathing is improving but he continues to feel short of breath with ambulation. He stated that he is not close to his baseline yet. She denies any cough. Otherwise he has no other complaints. Objective Vitals Vital Signs Date Time Temp Pulse Resp B/P (MAP) Pulse Ox O2 Delivery O2 Flow Rate FiO2 08/21/17 06:06 93 Nasal Cannula 4.00 08/21/17 04:00 98.2 66 20 120/57 (78) 92 111/56 (74) 113/58 (76) 08/21/17 00:00 97.1 64 18 112/55 (74) 90 08/20/17 21:00 66 08/20/17 20:00 Nasal Cannula 3.50 08/20/17 20:00 97.4 75 18 107/59 (75) 90 08/20/17 17:00 97.5 54 20 102/58 (73) 92 08/20/17 16:00 93 Nasal Cannula 3.50 08/20/17 12:00 97.3 57 20 121/53 (75) 90 I/O 08/20/17 08/20/17 08/20/17 08/21/17 08/21/17 08/21/17 07:00 15:00 23:00 07:00 15:00 23:00 Intake Total 240 ml 480 ml 480 ml Output Total 1350 ml 275 ml 1200 ml Balance -1110 ml 205 ml -720 ml Intake Oral 240 ml 480 ml 480 ml Output Urine Total 1350 ml 275 ml 1200 ml # Voids 2 # Bowel Movements 0 0 1 Result Diagram: 08/21/17 0800 08/21/17 0800 Objective Remarks GENERAL: sitting in chair in NAD NECK: Supple, trachea midline. No JVD or lymphadenopathy. CARDIOVASCULAR: Regular rate and rhythm without murmurs, gallops, or rubs. RESPIRATORY: No accessory muscle use. GASTROINTESTINAL: Abdomen soft, non-tender, nondistended. MUSCULOSKELETAL: No cyanosis, trace to +trace extremity edema. Medications and IVs Current Medications Aspirin (Aspirin Chew) 324 mg ONCE ONCE PO Last administered on 08/19/17t 18: 46; Start 08/19/17 at 18:45; Stop 08/19/17 at 18:46; Status DC Sodium Chloride (NS Flush) 2 ml UNSCH PRN IVF FLUSH AFTER USING IV ACCESS Last administered on 08/19/17 18:46; Start 08/19/17 at 18:45; Stop 08/20/17 at 05 :06; Status DC Furosemide (Lasix Inj) 80 mg ONCE ONCE IV PUSH Last administered on 18:46; Start 08/19/17 at 18:45; Stop 08/19/17 at 18:46; Status DC Furosemide (Lasix Inj) 40 mg BID@ IV PUSH Last administered on 08/21/17 09:09; Start 08/20/17 at 09:00 Sodium Chloride (NS Flush) 2 ml UNSCH PRN IV FLUSH FLUSH AFTER USING IV ACCESS ; Start 08/19/17 at 20:45 Sodium Chloride (NS Flush) 2 ml BID IV FLUSH Last administered on 08/21/17 09 :09; Start 08/19/17 at 21:00 Ondansetron HCl (Zofran Inj) 4 mg Q6H PRN IVP NAUSEA OR VOMITING; Start at 20:45 Acetaminophen (Tylenol) 650 mg Q6H PRN PO FEVER/PAIN SCALE 1 TO 2; Start 08/19 at 20:45 Acetaminophen/ Hydrocodone Bitart ([place] 5-325 Mg) 1 tab Q4H PRN PO PAIN SCALE 3 TO 5; Start 08/19/17 at 20:45 Morphine Sulfate (Morphine Inj) 2 mg Q3H PRN IV PUSH PAIN SCALE 6-10; Start at 20:45 Senna/Docusate Sodium (Dana-Colace) 1 tab BID PO Last administered on 09:08; Start 08/19/17 at 21:00 Magnesium Hydroxide (Milk Of Magnesia Liq) 30 ml Q12H PRN PO Mild constipation ; Start 08/19/17 at 20:45 Sennosides (Senokot) 17.2 mg Q12H PRN PO Moderate constipation; Start at 20:45 Bisacodyl (Dulcolax Supp) 10 mg DAILY PRN RECTAL SEVERE CONSITIPATION; Start 08/19/17 at 20:45 Lactulose (Lactulose Liq) 30 ml DAILY PRN PO SEVERE CONSITIPATION; Start 08/19 at 20:45 Aspirin (Aspirin Chew) 81 mg ONCE PO ; Start 08/19/17 at 20:45; Stop 08/19/17 at 20:45; Status DC Digoxin (Lanoxin) 0.25 mg DAILY PO Last administered on 08/21/17 09:08; Start 08/20/17 at 09:00 Warfarin Sodium (Coumadin) 5 mg DAILY PO ; Start 08/20/17 at 09:00; Stop 08/20 at 09:00; Status DC Carvedilol (Coreg) 6.25 mg BID PO Last administered on 08/21/17 09:08; Start 08/20/17 at 09:00 Aspirin (Aspirin Chew) 81 mg DAILY PO Last administered on 08/21/17 09:08; Start 08/20/17 at 09:00 Warfarin Sodium (Coumadin) 5 mg DAILY@1600 PO Last administered on 08/20/17 17:43; Start 08/20/17 at 16:00 Dextrose/Sodium Chloride 500 ml @ 500 mls/hr BOLUS ONCE IV Last administered on 08/19/17 21:28; Start 08/19/17 at 21:15; Stop 08/19/17 at 22:14; Status DC Dextrose/Sodium Chloride 500 ml @ 500 mls/hr BOLUS ONCE IV Last administered on 08/20/17 05:16; Start 08/20/17 at 05:00; Stop 08/20/17 at 05:59; Status DC Pharmacy Profile Note 0 ml @ 0 mls/hr UNSCH OTHER ; Start 08/20/17 at 08:15 A/P Problem List: (1) CHF (congestive heart failure) ICD Code: I50.9 - Heart failure, unspecified (2) Fall ICD Code: W19.XXXA - Unspecified fall, initial encounter (3) Thrombocytopenia ICD Code: D69.6 - Thrombocytopenia, unspecified (4) A-fib ICD Code: I48.91 - Unspecified atrial fibrillation (5) TOMMY (acute kidney injury) ICD Code: N17.9 - Acute kidney failure, unspecified Assessment and Plan 62-year-old male past medical history of CHF who presented with shortness of breathing and increased lower extremity edema Acute on chronic CHF exacerbation -Unknown EF. CXR w/ no acute findings with significant lower extremity edema bilaterally. S/p Lasix 80mg IV in ER, caution w/ renal function. Continue w/ diuresis, Monitor I/O. -Echo already ordered pending echo. -Home dose is 40 mg by mouth twice a day. Clinically patient is improving. Continue with Lasix IV 20 mg twice a day. -Continue to wean oxygen as tolerated. Acute respiratory failure with hypoxia -See treatment as above. Patient is not on any home oxygen. Will need to wean off of oxygen as tolerated. Fall: - s/p near syncopal event w/ fall/head injury secondary to dizziness upon standing, likely from over-diuresis. - +forehead and knee abrasion, superficial. CT Head w/ no acute findings, Knee X-ray negative for fracture. -Consult physical therapist. TOMMY: Creatinine 2.50, previously 1.18 on 11/13/15 -Unsure of new baseline. Will try to obtain medical records from his PCP at [place]. This might be difficult since it is the weekend. -Continue to hold MELISA. -Strict ins and outs. Avoid nephrotoxins. Continue monitor creatinine. Adjust accordingly. A-fib: Chronic. -Continue with digoxin and Coumadin. Chronic anticoagulation -Due to atrial fibrillation. continue Monitor INR. Continue with Coumadin. Thrombocytopenia: - Platelets 139, previously 178 on 11/13/15. No active bleeding. -Platelets are stable. nose bleed -Bleeding is controlled. Most likely secondary to irritated/dried nasal canal from oxygen. Will order HARPAL why saline solution to help more strides nasal canal. DVT Prophylaxis: On Coumadin. Discharge Planning Patient continues to require oxygen and will need to continue IV Lasix. Soco Archer MD Aug 21, 2017 11:00
[2017-08-21] MEDS: WARFARIN SOD 5 MG TAB PO SCH (18:35)
[2017-08-22] VITALS (7 sets, daily range): BP systolic 101–116; BP diastolic 54–60; PULSE 59–64; RESP 16–20; TEMP 97.1–98.1; O2SAT 92–94
[2017-08-22 07:42] LABS: HEMATOCRIT 30.6 % (39.0-51.0); MEAN CELL VOLUME 101.2 FL (80.0-100.0); MEAN CORPUSCULAR HEMOGLOBIN 34.6 PG (27.0-34.0); MEAN CORPUSCULAR HGB CONC 34.2 % (32.0-36.0); PLATELET COUNT 141 TH/MM3 (150-450); RED BLOOD COUNT 3.02 MIL/MM3 (4.50-5.90); RED CELL DISTRIBUTION WIDTH 14.5 % (11.6-17.2); REVIEW FLAG FINAL
[2017-08-22 08:02] LABS: BICARBONATE 20.2 MEQ/L (21.0-32.0); POTASSIUM 3.8 MEQ/L (3.5-5.1)
[2017-08-22] MEDS: CARVEDILOL 6.25 MG TAB PO SCH ×2 (08:13→20:01)
[2017-08-22] MEDS: ASPIRIN 81 MG CHEW TAB PO SCH (08:15)
[2017-08-22] MEDS: FUROSEMIDE 40 MG/4 ML VIAL IV PUSH SCH ×2 (08:15→17:06)
[2017-08-22] MEDS: SODIUM CHLORIDE 0.9% FLUSH 10 ML FLUSH IV FLUSH SCH ×2 (08:16→20:01)
[2017-08-22] MEDS: DOCUSATE SODIUM 50 MG/SENNA 8.6 MG TAB PO SCH ×2 (08:16→20:01)
[2017-08-22] MEDS: DIGOXIN 0.25 MG TAB PO SCH (08:16)
--- NOTE | 2017-08-22 12:23 | HHI.PR ---
Subjective Remarks Follow-up for CHF exacerbation Patient stated that breathing has improved. He stated that he was able to walk more before feeling short of breath compared to yesterday. He stated that he continues have intermittent nosebleed but that has improved. He has no other complaints. Objective Vitals Vital Signs Date Time Temp Pulse Resp B/P (MAP) Pulse Ox O2 Delivery O2 Flow Rate FiO2 08/22/17 11:50 97.5 63 20 116/59 (78) 94 08/22/17 08:00 Nasal Cannula 3.00 08/22/17 08:00 97.1 60 18 101/54 (70) 93 08/22/17 08:00 59 08/22/17 04:00 97.3 61 20 106/55 (72) 93 08/22/17 00:00 97.2 62 18 112/60 (77) 93 08/21/17 20:09 65 08/21/17 20:00 Nasal Cannula 3.50 08/21/17 20:00 97.2 63 20 119/57 (77) 94 08/21/17 16:00 97.4 57 20 116/58 (77) 92 I/O 08/21/17 08/21/17 08/21/17 08/22/17 08/22/17 08/22/17 07:00 15:00 23:00 07:00 15:00 23:00 Intake Total 480 ml 480 ml 480 ml Output Total 1200 ml 1450 ml 2100 ml Balance -720 ml -970 ml -1620 ml Intake Oral 480 ml 480 ml 480 ml Output Urine Total 1200 ml 1450 ml 2100 ml # Bowel Movements 1 0 0 Result Diagram: 08/22/17 0500 08/22/17 0500 Objective Remarks GENERAL: sitting in chair in NAD NECK: Supple, trachea midline. No JVD or lymphadenopathy. CARDIOVASCULAR: Regular rate and rhythm without murmurs, gallops, or rubs. RESPIRATORY: No accessory muscle use. GASTROINTESTINAL: Abdomen soft, non-tender, nondistended. MUSCULOSKELETAL: No cyanosis, trace to +trace extremity edema. Medications and IVs Current Medications Aspirin (Aspirin Chew) 324 mg ONCE ONCE PO Last administered on 08/19/17t 18: 46; Start 08/19/17 at 18:45; Stop 08/19/17 at 18:46; Status DC Sodium Chloride (NS Flush) 2 ml UNSCH PRN IVF FLUSH AFTER USING IV ACCESS Last administered on 08/19/17 18:46; Start 08/19/17 at 18:45; Stop 08/20/17 at 05 :06; Status DC Furosemide (Lasix Inj) 80 mg ONCE ONCE IV PUSH Last administered on 18:46; Start 08/19/17 at 18:45; Stop 08/19/17 at 18:46; Status DC Furosemide (Lasix Inj) 40 mg BID@18 IV PUSH Last administered on 08/22/17 08:15; Start 08/20/17 at 09:00 Sodium Chloride (NS Flush) 2 ml UNSCH PRN IV FLUSH FLUSH AFTER USING IV ACCESS ; Start 08/19/17 at 20:45 Sodium Chloride (NS Flush) 2 ml BID IV FLUSH Last administered on 08/22/17 08 :16; Start 08/19/17 at 21:00 Ondansetron HCl (Zofran Inj) 4 mg Q6H PRN IVP NAUSEA OR VOMITING; Start at 20:45 Acetaminophen (Tylenol) 650 mg Q6H PRN PO FEVER/PAIN SCALE 1 TO 2; Start 08/19 at 20:45 Acetaminophen/ Hydrocodone Bitart ([place] 5-325 Mg) 1 tab Q4H PRN PO PAIN SCALE 3 TO 5; Start 08/19/17 at 20:45 Morphine Sulfate (Morphine Inj) 2 mg Q3H PRN IV PUSH PAIN SCALE 6-10; Start at 20:45 Senna/Docusate Sodium (Dana-Colace) 1 tab BID PO Last administered on 08:16; Start 08/19/17 at 21:00 Magnesium Hydroxide (Milk Of Magnesia Liq) 30 ml Q12H PRN PO Mild constipation ; Start 08/19/17 at 20:45 Sennosides (Senokot) 17.2 mg Q12H PRN PO Moderate constipation; Start at 20:45 Bisacodyl (Dulcolax Supp) 10 mg DAILY PRN RECTAL SEVERE CONSITIPATION; Start 08/19/17 at 20:45 Lactulose (Lactulose Liq) 30 ml DAILY PRN PO SEVERE CONSITIPATION; Start 08/19 at 20:45 Aspirin (Aspirin Chew) 81 mg ONCE PO ; Start 08/19/17 at 20:45; Stop 08/19/17 at 20:45; Status DC Digoxin (Lanoxin) 0.25 mg DAILY PO Last administered on 08/22/17 08:16; Start 08/20/17 at 09:00 Warfarin Sodium (Coumadin) 5 mg DAILY PO ; Start 08/20/17 at 09:00; Stop 08/20 at 09:00; Status DC Carvedilol (Coreg) 6.25 mg BID PO Last administered on 08/21/17 22:13; Start 08/20/17 at 09:00 Aspirin (Aspirin Chew) 81 mg DAILY PO Last administered on 08/22/17 08:15; Start 08/20/17 at 09:00 Warfarin Sodium (Coumadin) 5 mg DAILY@1600 PO Last administered on 08/21/17 18:35; Start 08/20/17 at 16:00 Dextrose/Sodium Chloride 500 ml @ 500 mls/hr BOLUS ONCE IV Last administered on 08/19/17 21:28; Start 08/19/17 at 21:15; Stop 08/19/17 at 22:14; Status DC Dextrose/Sodium Chloride 500 ml @ 500 mls/hr BOLUS ONCE IV Last administered on 08/20/17 05:16; Start 08/20/17 at 05:00; Stop 08/20/17 at 05:59; Status DC Pharmacy Profile Note 0 ml @ 0 mls/hr UNSCH OTHER ; Start 08/20/17 at 08:15 Sodium Chloride (Baby [place] Saline 0.65% [address]/ [place]) 6 drop UNSCH PRN EACH NARE irritated nasal canal; Start 08/21/17 at 11:00 A/P Problem List: (1) CHF (congestive heart failure) ICD Code: I50.9 - Heart failure, unspecified (2) Fall ICD Code: W19.XXXA - Unspecified fall, initial encounter (3) Thrombocytopenia ICD Code: D69.6 - Thrombocytopenia, unspecified (4) A-fib ICD Code: I48.91 - Unspecified atrial fibrillation (5) TOMMY (acute kidney injury) ICD Code: N17.9 - Acute kidney failure, unspecified Assessment and Plan 62-year-old male past medical history of CHF who presented with shortness of breathing and increased lower extremity edema Acute on chronic CHF exacerbation -Unknown EF. CXR w/ no acute findings with significant lower extremity edema bilaterally. S/p Lasix 80mg IV in ER, caution w/ renal function. Continue w/ diuresis, Monitor I/O. -Pending echo report. -Home dose is 40 mg by mouth twice a day. Clinically patient is improving. Continue with Lasix IV 40 mg twice a day. -Continue to wean oxygen as tolerated. -Will do a walk test. Patient may require home oxygen initially. Acute respiratory failure with hypoxia -See treatment as above. Patient is not on any home oxygen. Will need to wean off of oxygen as tolerated. Fall: - s/p near syncopal event w/ fall/head injury secondary to dizziness upon standing, likely from over-diuresis. - +forehead and knee abrasion, superficial. CT Head w/ no acute findings, Knee X-ray negative for fracture. Acute on chronic kidney disease: Creatinine 2.50, previously 1.18 on 11/13/15 -Threatening is improving. -Continue to hold MELISA. -Strict ins and outs. Avoid nephrotoxins. Continue monitor creatinine. Adjust accordingly. A-fib: Chronic. -Continue with digoxin and Coumadin. Chronic anticoagulation -Due to atrial fibrillation. continue Monitor INR. Continue with Coumadin. Thrombocytopenia: - Platelets 139, previously 178 on 11/13/15. No active bleeding. -Platelets are stable. nose bleed -Bleeding is controlled. Most likely secondary to irritated/dried nasal canal from oxygen. on HARPAL why saline solution. DVT Prophylaxis: On Coumadin. Discharge Planning Patient continues to require oxygen and will need to continue IV Lasix. Soco Archer MD Aug 22, 2017 12:23
[2017-08-22 15:20] LABS: PROTHROMBIN TIME - PATIENT 35.3 SEC (9.8-11.6)
--- NOTE | 2017-08-22 16:03 | ECHRPT ---
Indication: cardiomyopathy CONCLUSIONS Normal left ventricular size. The left ventricular systolic function is mildly reduced with an estimated ejection fraction in the range of 45- 50%. Mild concentric left ventricular hypertrophy. The left atrial size is [id number] dilated. Mild mitral valve regurgitation. Diffuse calcification of the aortic valve. Aortic valve mean gradient is 19 mmHg. Trace aortic valve regurgitation. There is mild tricuspid valve regurgitation. The estimated pulmonary arterial pressure is 22.1 mmHg. BP: / HR: Rhythm: MEASUREMENTS (Male / Female) Normal Values Technical Quality:Good 2D ECHO LV Diastolic Diameter PLAX 5.8 cm 4.2 - 5.9 / 3.9 - 5.3 cm LV Systolic Diameter PLAX 4.6 cm IVS Diastolic Thickness 1.2 cm 0.6 - 1.0 / 0.6 - 0.9 cm LVPW Diastolic Thickness 1.0 cm 0.6 - 1.0 / 0.6 - 0.9 cm LV Relative Wall Thickness 0.4 RV Internal Dim ED PLAX 3.4 cm LVOT Diameter 2.1 cm M-MODE Aortic Root Diameter MM 3.8 cm LA Systolic Diameter MM 5.9 cm LA Ao Ratio MM 1.6 AV Cusp Separation MM 1.3 cm DOPPLER AV Peak Velocity 306.0 cm/s AV Peak Gradient 37.5 mmHg AV Mean Gradient 19.0 mmHg AV Velocity Time Integral 60.7 cm LVOT Peak Velocity 79.7 cm/s LVOT Peak Gradient 2.5 mmHg LVOT Velocity Time Integral 14.9 cm AV Area Cont Eq vti 0.9 cm AV Area Cont Eq pk 0.9 cm LV E' Lateral Velocity 18.5 cm/s LV E' Septal Velocity 11.0 cm/s TR Peak Velocity 174.0 cm/s TR Peak Gradient 12.1 mmHg Right Atrial Pressure 10.0 mmHg Pulmonary Artery Systolic Pressu 22.1 mmHg Right Ventricular Systolic Press 22.1 mmHg FINDINGS LEFT VENTRICLE Normal left ventricular size. The left ventricular systolic function is mildly reduced with an estimated ejection fraction in the range of 45- 50%. Mild concentric left ventricular hypertrophy. RIGHT VENTRICLE Normal right ventricular size and systolic function. LEFT ATRIUM The left atrial size is mtvf-[id number]-lknhztslie dilated. RIGHT ATRIUM The right atrial size is normal. ATRIAL SEPTUM Normal atrial septal thickness without atrial level shunting by limited color doppler interrogation. AORTA The aortic root and proximal ascending aorta are normal in size on limited imaging. MITRAL VALVE Mild mitral valve regurgitation. Structurally normal mitral valve. AORTIC VALVE Diffuse calcification of the aortic valve. Aortic valve area is 0.85 cm. Aortic valve mean gradient is 19 mmHg. Trace aortic valve regurgitation. TRICUSPID VALVE Structurally normal tricuspid valve. There is mild tricuspid valve regurgitation. The estimated pulmonary arterial pressure is 22.1 mmHg. PULMONARY VALVE No pulmonary valve regurgitation or stenosis. VESSELS The inferior vena cava is normal in size. PERICARDIUM No pericardial effusion. Raúl Abebe MD (Electronically Signed) Final Date:22 August 2017 16:02
[2017-08-23] VITALS (8 sets, daily range): BP systolic 98–111; BP diastolic 52–58; PULSE 52–69; RESP 16–20; TEMP 97.4–97.9; O2SAT 92–97
[2017-08-23 05:46] LABS: INTERNATIONAL NORMALIZED RATIO 3.4 RATIO; PROTHROMBIN TIME - PATIENT 39.1 SEC (9.8-11.6)
[2017-08-23] MEDS ORDERED: OXYGENDME NAS.CANULA (09:53)
[2017-08-23] MEDS: ASPIRIN 81 MG CHEW TAB PO SCH (10:29)
[2017-08-23] MEDS: DIGOXIN 0.25 MG TAB PO SCH (10:29)
[2017-08-23] MEDS: DOCUSATE SODIUM 50 MG/SENNA 8.6 MG TAB PO SCH ×2 (10:29→20:23)
[2017-08-23] MEDS: CARVEDILOL 6.25 MG TAB PO SCH ×2 (10:29→20:23)
[2017-08-23] MEDS: SODIUM CHLORIDE 0.9% FLUSH 10 ML FLUSH IV FLUSH SCH ×2 (10:30→20:23)
[2017-08-23] MEDS: FUROSEMIDE 40 MG/4 ML VIAL IV PUSH SCH ×2 (10:32→18:00)
--- NOTE | 2017-08-23 10:57 | HHI.PR ---
Subjective Remarks Follow-up respiratory failure and CHF exacerbation Patient states shortness of breathing is proving. He stated he still feels short of breath with exertion but has improved. He is on 3L of oxygen at rest. Objective Vitals Vital Signs Date Time Temp Pulse Resp B/P (MAP) Pulse Ox O2 Delivery O2 Flow Rate FiO2 08/23/17 08:00 97.6 64 20 106/55 (72) 94 08/23/17 04:00 97.6 66 16 98/53 (68) 93 08/23/17 00:00 97.9 63 16 111/58 (75) 93 08/22/17 20:00 98.1 64 16 107/55 (72) 92 08/22/17 19:00 Nasal Cannula 3.00 08/22/17 18:36 3.00 08/22/17 17:00 93 Nasal Cannula 3.00 08/22/17 16:00 97.6 64 18 114/57 (76) 93 08/22/17 11:50 97.5 63 20 116/59 (78) 94 I/O 08/22/17 08/22/17 08/22/17 08/23/17 08/23/17 08/23/17 07:00 15:00 23:00 07:00 15:00 23:00 Intake Total 480 ml 720 ml 480 ml Output Total 2100 ml 1525 ml 900 ml Balance -1620 ml -805 ml -420 ml Intake Oral 480 ml 720 ml 480 ml Output Urine Total 2100 ml 1525 ml 900 ml # Bowel Movements 0 1 Result Diagram: 08/22/17 0500 08/22/17 0500 Imaging Last Impressions Chest X-Ray 08/19/17 1837 Signed Impressions: Service Date/Time: Saturday, August 19, 2017 18:57 - CONCLUSION: 1. Cardiomegaly. The patient is status post sternotomy and has a pacing/AICD device in place. 2. Degenerative change and loose bodies of the left glenohumeral joint. Ralph English MD Knee X-Ray 08/19/17 0000 Signed Impressions: Service Date/Time: Saturday, August 19, 2017 18:58 - CONCLUSION: No acute disease. Ralph English MD Head CT 08/19/17 0000 Signed Impressions: Service Date/Time: Sunday, August 19, 2017 18:56 - CONCLUSION: Normal examination. Ralph English MD Objective Remarks GENERAL: sitting in chair in NAD NECK: Supple, trachea midline. No JVD or lymphadenopathy. CARDIOVASCULAR: Regular rate and rhythm, 3/6 systolic heart murmur heard best at the pulmonic area. RESPIRATORY: No accessory muscle use. GASTROINTESTINAL: Abdomen soft, non-tender, nondistended. MUSCULOSKELETAL: No cyanosis, trace extremity edema. Medications and IVs Current Medications Aspirin (Aspirin Chew) 324 mg ONCE ONCE PO Last administered on 08/19/17 18: 46; Start 08/19/17 at 18:45; Stop 08/19/17 at 18:46; Status DC Sodium Chloride (NS Flush) 2 ml UNSCH PRN IVF FLUSH AFTER USING IV ACCESS Last administered on 08/19/17 18:46; Start 08/19/17 at 18:45; Stop 08/20/17 at 05 :06; Status DC Furosemide (Lasix Inj) 80 mg ONCE ONCE IV PUSH Last administered on 18:46; Start 08/19/17 at 18:45; Stop 08/19/17 at 18:46; Status DC Furosemide (Lasix Inj) 40 mg BID@09,18 IV PUSH Last administered on 08/23/17 10:32; Start 08/20/17 at 09:00 Sodium Chloride (NS Flush) 2 ml UNSCH PRN IV FLUSH FLUSH AFTER USING IV ACCESS ; Start 08/19/17 at 20:45 Sodium Chloride (NS Flush) 2 ml BID IV FLUSH Last administered on 08/23/17 10 :30; Start 08/19/17 at 21:00 Ondansetron HCl (Zofran Inj) 4 mg Q6H PRN IVP NAUSEA OR VOMITING; Start at 20:45 Acetaminophen (Tylenol) 650 mg Q6H PRN PO FEVER/PAIN SCALE 1 TO 2; Start 08/19 at 20:45 Acetaminophen/ Hydrocodone Bitart ([place] 5-325 Mg) 1 tab Q4H PRN PO PAIN SCALE 3 TO 5; Start 08/19/17 at 20:45 Morphine Sulfate (Morphine Inj) 2 mg Q3H PRN IV PUSH PAIN SCALE 6-10; Start at 20:45 Senna/Docusate Sodium (Dana-Colace) 1 tab BID PO Last administered on 10:29; Start 08/19/17 at 21:00 Magnesium Hydroxide (Milk Of Magnesia Liq) 30 ml Q12H PRN PO Mild constipation ; Start 08/19/17 at 20:45 Sennosides (Senokot) 17.2 mg Q12H PRN PO Moderate constipation; Start at 20:45 Bisacodyl (Dulcolax Supp) 10 mg DAILY PRN RECTAL SEVERE CONSITIPATION; Start 08/19/17 at 20:45 Lactulose (Lactulose Liq) 30 ml DAILY PRN PO SEVERE CONSITIPATION; Start 08/19 at 20:45 Aspirin (Aspirin Chew) 81 mg ONCE PO ; Start 08/19/17 at 20:45; Stop 08/19/17 at 20:45; Status DC Digoxin (Lanoxin) 0.25 mg DAILY PO Last administered on 08/23/17 10:29; Start 08/20/17 at 09:00 Warfarin Sodium (Coumadin) 5 mg DAILY PO ; Start 08/20/17 at 09:00; Stop 08/20 at 09:00; Status DC Carvedilol (Coreg) 6.25 mg BID PO Last administered on 08/23/17 10:29; Start 08/20/17 at 09:00 Aspirin (Aspirin Chew) 81 mg DAILY PO Last administered on 08/23/17 10:29; Start 08/20/17 at 09:00 Warfarin Sodium (Coumadin) 5 mg DAILY@1600 PO Last administered on 08/21/17 18:35; Start 08/20/17 at 16:00; Status Future Hold Dextrose/Sodium Chloride 500 ml @ 500 mls/hr BOLUS ONCE IV Last administered on 08/19/17 21:28; Start 08/19/17 at 21:15; Stop 08/19/17 at 22:14; Status DC Dextrose/Sodium Chloride 500 ml @ 500 mls/hr BOLUS ONCE IV Last administered on 08/20/17 05:16; Start 08/20/17 at 05:00; Stop 08/20/17 at 05:59; Status DC Pharmacy Profile Note 0 ml @ 0 mls/hr UNSCH OTHER ; Start 08/20/17 at 08:15 Sodium Chloride (Baby [place] Saline 0.65% [address]/ [place]) 6 drop UNSCH PRN EACH NARE irritated nasal canal; Start 08/21/17 at 11:00 A/P Problem List: (1) CHF (congestive heart failure) ICD Code: I50.9 - Heart failure, unspecified (2) Fall ICD Code: W19.XXXA - Unspecified fall, initial encounter (3) Thrombocytopenia ICD Code: D69.6 - Thrombocytopenia, unspecified (4) A-fib ICD Code: I48.91 - Unspecified atrial fibrillation (5) TOMMY (acute kidney injury) ICD Code: N17.9 - Acute kidney failure, unspecified Assessment and Plan 62-year-old male past medical history of CHF who presented with shortness of breathing and increased lower extremity edema Acute on chronic CHF exacerbation systolic dysfunction -Echo showed EF of 45-50%, mild tricuspid regurgitation, and LVH. CXR w/ no acute findings with significant lower extremity edema bilaterally. -Home dose is 40 mg by mouth twice a day. Clinically patient is improving. Continue with Lasix IV 40 mg twice a day. -Continue to wean oxygen as tolerated. -Patient failed walk test will order oxygen. Acute respiratory failure with hypoxia -See treatment as above. Patient is not on any home oxygen. Will need to wean off of oxygen as tolerated. Fall: - s/p near syncopal event w/ fall/head injury secondary to dizziness upon standing, likely from over-diuresis. - +forehead and knee abrasion, superficial. CT Head w/ no acute findings, Knee X-ray negative for fracture. Acute on chronic kidney disease: Creatinine 2.50, previously 1.18 on 11/13/15 -Cr improving. pending Cr for today. -Continue to hold MELISA. -Strict ins and outs. Avoid nephrotoxins. Continue monitor creatinine. Adjust accordingly. -Continue to monitor creatinine and urine output. A-fib: Chronic. -Continue with digoxin and Coumadin. Chronic anticoagulation -Due to atrial fibrillation. continue Monitor INR. INR 3.4. being managed by pharmacist. Coumadin held today. Continue monitor INR and adjust accordingly. Thrombocytopenia: - Platelets 139, previously 178 on 11/13/15. No active bleeding. -Platelets are stable. nose bleed -Bleeding is controlled. Most likely secondary to irritated/dried nasal canal from oxygen. on HARPAL why saline solution. DVT Prophylaxis: On Coumadin. Discharge Planning Patient continues to require oxygen and will need to continue IV Lasix. He will need home oxygen upon discharge. Soco Archer MD Aug 23, 2017 10:57
[2017-08-23 11:42] LABS: HEMATOCRIT 31.2 % (39.0-51.0); MEAN CELL VOLUME 102.5 FL (80.0-100.0); MEAN CORPUSCULAR HEMOGLOBIN 35.5 PG (27.0-34.0); MEAN CORPUSCULAR HGB CONC 34.6 % (32.0-36.0); PLATELET COUNT 140 TH/MM3 (150-450); RED BLOOD COUNT 3.04 MIL/MM3 (4.50-5.90); RED CELL DISTRIBUTION WIDTH 14.5 % (11.6-17.2); REVIEW FLAG FINAL; WHITE BLOOD COUNT 4.7 TH/MM3 (4.0-11.0)
[2017-08-23 12:09] LABS: BICARBONATE 25.7 MEQ/L (21.0-32.0); POTASSIUM 3.6 MEQ/L (3.5-5.1)
--- NOTE | 2017-08-23 19:59 | HHI.PR ---
Subjective Remarks NOT SEEN Objective Vitals Vital Signs Date Time Temp Pulse Resp B/P (MAP) Pulse Ox O2 Delivery O2 Flow Rate FiO2 08/23/17 16:00 97.7 52 18 101/55 (70) 93 08/23/17 12:00 97.4 59 18 104/57 (73) 97 08/23/17 10:57 94 Nasal Cannula 3.00 08/23/17 08:00 97.6 64 20 106/55 (72) 94 08/23/17 08:00 60 08/23/17 07:00 Nasal Cannula 3.00 08/23/17 04:00 97.6 66 16 98/53 (68) 93 08/23/17 00:00 97.9 63 16 111/58 (75) 93 08/22/17 20:00 98.1 64 16 107/55 (72) 92 I/O 08/22/17 08/22/17 08/22/17 08/23/17 08/23/17 08/23/17 07:00 15:00 23:00 07:00 15:00 23:00 Intake Total 480 ml 720 ml 480 ml 240 ml Output Total 2100 ml 1525 ml 900 ml 1150 ml Balance -1620 ml -805 ml -420 ml -910 ml Intake Oral 480 ml 720 ml 480 ml 240 ml Output Urine Total 2100 ml 1525 ml 900 ml 1150 ml # Bowel Movements 0 1 1 Result Diagram: 08/23/17 1118 08/23/17 1118 Imaging Last Impressions Chest X-Ray 08/19/17 1837 Signed Impressions: Service Date/Time: Saturday, August 19, 2017 18:57 - CONCLUSION: 1. Cardiomegaly. The patient is status post sternotomy and has a pacing/AICD device in place. 2. Degenerative change and loose bodies of the left glenohumeral joint. Ralph English MD Knee X-Ray 08/19/17 0000 Signed Impressions: Service Date/Time: Saturday, August 19, 2017 18:58 - CONCLUSION: No acute disease. Ralph English MD Head CT 08/19/17 0000 Signed Impressions: Service Date/Time: Saturday, August 19, 2017 18:56 - CONCLUSION: Normal examination. Ralph English MD A/P Problem List: (1) CHF (congestive heart failure) ICD Code: I50.9 - Heart failure, unspecified (2) Fall ICD Code: W19.XXXA - Unspecified fall, initial encounter (3) Thrombocytopenia ICD Code: D69.6 - Thrombocytopenia, unspecified (4) A-fib ICD Code: I48.91 - Unspecified atrial fibrillation (5) TOMMY (acute kidney injury) ICD Code: N17.9 - Acute kidney failure, unspecified Assessment and Plan 62-year-old male past medical history of CHF who presented with shortness of breathing and increased lower extremity edema Acute on chronic CHF exacerbation systolic dysfunction -Echo showed EF of 45-50%, mild tricuspid regurgitation, and LVH. CXR w/ no acute findings with significant lower extremity edema bilaterally. -Home dose is 40 mg by mouth twice a day. Clinically patient is improving. Continue with Lasix IV 40 mg twice a day. -Continue to wean oxygen as tolerated. -Patient failed walk test will order oxygen. Acute respiratory failure with hypoxia -See treatment as above. Patient is not on any home oxygen. Will need to wean off of oxygen as tolerated. Fall: - s/p near syncopal event w/ fall/head injury secondary to dizziness upon standing, likely from over-diuresis. - +forehead and knee abrasion, superficial. CT Head w/ no acute findings, Knee X-ray negative for fracture. Acute on chronic kidney disease: Creatinine 2.50, previously 1.18 on 11/13/15 -Cr improving. pending Cr for today. -Continue to hold MELISA. -Strict ins and outs. Avoid nephrotoxins. Continue monitor creatinine. Adjust accordingly. -Continue to monitor creatinine and urine output. A-fib: Chronic. -Continue with digoxin and Coumadin. Chronic anticoagulation -Due to atrial fibrillation. continue Monitor INR. INR 3.4. being managed by pharmacist. Coumadin held today. Continue monitor INR and adjust accordingly. Thrombocytopenia: - Platelets 139, previously 178 on 11/13/15. No active bleeding. -Platelets are stable. nose bleed -Bleeding is controlled. Most likely secondary to irritated/dried nasal canal from oxygen. on HARPAL why saline solution. DVT Prophylaxis: On Coumadin. Discharge Planning Patient continues to require oxygen and will need to continue IV Lasix. He will need home oxygen upon discharge. Amari Razo MD Aug 23, 2017 19:59
[2017-08-24] VITALS: BP 112/58; PULSE 70; RESP 17; TEMP 97.7; O2SAT 93
[2017-08-24 04:00] VITALS: BP 111/56; PULSE 66; RESP 17; TEMP 97.7; O2SAT 91
--- NOTE | 2017-08-24 06:36 | MB ---
cc: ROBIN ORTA DO DATE OF CONSULTATION 08/23/2017 REASON FOR CONSULTATION Beep from ICD HISTORY OF PRESENT ILLNESS Bernard Christopher is a pleasant 62-year-old male who presented to [facility] on August 19, 2017 due to shortness of breath. The patient is currently down from [place] on vacation and noted that he was complaining of dizziness, shortness of breath and lower extremity edema for three to four days. He states that he has a recent similar episode while in [place] and was found to be in further heart failure and diuresed while in the hospital. Since being here, he has been diuresed with overall outputs being negative, as well as his weight decreasing from 96 kg to 90 kg. Today, his ICD with upbeat and so I was asked to see him for interrogation of his pacemaker. He states that he has no assembler carbon brushes in the area and lives most of this time in [place] and has a assembler carbon brushes there. In seeing him, he is currently hemodynamically stable without chest pain or shortness of breath. PAST MEDICAL HISTORY 1. Hypertension 2. Congestive heart failure 3. Atrial fibrillation 4. Diabetes mellitus PAST SURGICAL HISTORY 1. AICD placement with recent exchange of his generator in January 2017. 2. History of CABG. ALLERGIES NO KNOWN DRUG ALLERGIES. MEDICATIONS 1. Coumadin 5 mg daily 2. Digoxin 0.25 mg daily 3. Carvedilol CR 20 mg daily 4. Lisinopril 5 mg daily 5. Aspirin 81 mg daily 6. Lasix 40 mg b.i.d. FAMILY HISTORY Denies premature coronary artery disease or sudden cardiac within the family. SOCIAL HISTORY The patient occasionally drinks alcohol. Denies tobacco or drug abuse. REVIEW OF SYSTEMS 14-systems were reviewed including osteopathic pertinent positives and negatives above otherwise negative. PHYSICAL EXAMINATION VITAL SIGNS: Temperature 97.7, heart rate 52, blood pressure 101/55, respirations 18, pulse ox 93% on 3 liters. GENERAL: The patient appears well in no acute distress, alert awake and oriented x3. HEAD, EYES, EARS, NOSE, AND THROAT: Extraocular muscles intact. Mucous membranes moist. NECK: Supple. No JVD at 45 degrees. No carotid bruits heard bilaterally. Carotid upstroke is brisk in nature. HEART: Regular rate and rhythm. Positive first and second heart sounds with no noted murmurs, gallops or rubs. LUNGS: Decreased breath sounds bilateral bases but no overt wheezes, rales or rhonchi. ABDOMEN: Soft, nontender, nondistended, no organomegaly noted. EXTREMITIES: Show trace edema bilaterally. NEUROLOGIC: No focal deficits. SKIN: Warm, dry and intact. OSTEOPATHIC: No kyphoscoliosis, lordosis or paraspinal tender points. LABORATORY DATA Hemoglobin 10.8, hematocrit 31.2, platelets 140. INR 3.4. Potassium 3.6, BUN 35, creatinine 1.75, troponin negative x3. Electrocardiogram, atrial fibrillation with controlled ventricular response, mild ST-T wave changes inferolaterally. IMPRESSION 1. Congestive heart failure with echocardiogram showing an ejection fraction of 45-50% with mild concentric LVH. 2. History of coronary artery disease with a history of coronary artery bypass grafting. 3. Atrial fibrillation with controlled ventricular response, currently on Coumadin therapy. 4. Supratherapeutic INR. 5. Alert from ICD RECOMMENDATIONS 1. Mr. Christopher presented with congestive heart failure and recently had a similar episode while in [place]. He has been diuresed well and this will continue. 2. He is currently on Coreg and lisinopril from a heart failure standpoint. 3. He will continue on Coumadin at a lower dose for his atrial fibrillation. 4. His ICD has been interrogated and the alert was due to his SVC coil which had been that way which had shown elevated level for some time. The SVC coil has since been turned off. 5. His EKG does show some mild ST-T wave changes and I will discuss further with him about recent ischemic evaluation. 6. Further recommendations will be made based on the hospital course. Thank you for allowing me to see Bernard Christopher. If there are any questions, please do not hesitate to call. Robin Orta DO VGP/DJL /12:33 AM /6:26 AM
[2017-08-24 07:25] LABS: INTERNATIONAL NORMALIZED RATIO 2.7 RATIO; PROTHROMBIN TIME - PATIENT 31.6 SEC (9.8-11.6)
[2017-08-24 07:44] VITALS: O2SAT 94
[2017-08-24 07:45] LABS: BICARBONATE 24.5 MEQ/L (21.0-32.0); MAGNESIUM 1.7 MG/DL (1.5-2.5); POTASSIUM 3.5 MEQ/L (3.5-5.1)
[2017-08-24] MEDS: DIGOXIN 0.25 MG TAB PO SCH (07:54)
[2017-08-24] MEDS: CARVEDILOL 6.25 MG TAB PO SCH (07:55)
[2017-08-24] MEDS: ASPIRIN 81 MG CHEW TAB PO SCH (07:55)
[2017-08-24] MEDS: DOCUSATE SODIUM 50 MG/SENNA 8.6 MG TAB PO SCH (07:55)
[2017-08-24] MEDS: SODIUM CHLORIDE 0.9% FLUSH 10 ML FLUSH IV FLUSH SCH (07:56)
[2017-08-24] MEDS: FUROSEMIDE 40 MG/4 ML VIAL IV PUSH SCH (07:56)
[2017-08-24 08:00] VITALS: BP 115/59; PULSE 72; RESP 18; TEMP 98.9; O2SAT 92
[2017-08-24 12:00] VITALS: BP 109/59; PULSE 66; RESP 20; TEMP 97.9; O2SAT 95
[2017-08-24] MEDS ORDERED: COUM4TAB PO (12:19)
--- NOTE | 2017-08-24 12:19 | HHI.DCPOC ---
Discharge Care Plan Diagnosis: (1) CHF (congestive heart failure) Your Health Problems Are: Difficulty with ADL Exercise Tolerance Goals to Promote Your Health * To prevent worsening of your condition and complications * To maintain your health at the optimal level Directions to Meet Your Goals Take your medications as prescribed Follow your dietary instruction Follow activity as directed Keep your appointments as scheduled Take your immunizations and boosters as scheduled If your symptoms worsen call your PCP, if no PCP go to Urgent Care Center or Emergency Room Smoking is Dangerous to Your Health. Avoid second hand smoke Call the 24-hour hour crisis hotline for domestic abuse at Amari Razo MD Aug 24, 2017 12:19
--- NOTE | 2017-08-24 12:21 | HHI.FF ---
Face to Face Verification Diagnosis: (1) TOMMY (acute kidney injury) (2) CHF (congestive heart failure) Home Health Nursing Order: Medical education CHF education Oxygen administration education Medication education-adverse effect Nursing assessment with vital signs I have seen patient Bernard Christopher on 08/24/17. My clinical findings support the need for the requested home health care services because: Patient has SOB I certify that my clinical findings support that this patient is homebound because: Poor cardiac reserve Amari Razo MD Aug 24, 2017 12:21
--- NOTE | 2017-08-24 12:26 | HHI.DS ---
Discharge Summary Admission Date Aug 19, 2017 at 20:35 Discharge Date: Aug 24, 2017 Admitting Diagnosis CHF exacerbation/syncope/acute renal failure (1) CHF (congestive heart failure) ICD Code: I50.9 - Heart failure, unspecified Diagnosis: Principal (2) Fall ICD Code: W19.XXXA - Unspecified fall, initial encounter Diagnosis: Secondary (3) Thrombocytopenia ICD Code: D69.6 - Thrombocytopenia, unspecified Diagnosis: Secondary (4) A-fib ICD Code: I48.91 - Unspecified atrial fibrillation Diagnosis: Principal (5) TOMMY (acute kidney injury) ICD Code: N17.9 - Acute kidney failure, unspecified Diagnosis: Principal Procedures pacer interrogation Brief History - From Admission This is a 62-year-old male with a PMH of HTN, CHF (Unknown EF), A. fib on Coumadin and Diet Controlled DM who presented to the ER w/ complaints of dizziness, SOB and progressive lower extremity edema x3-4 days. 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 Denies recent changes to medications, reports compliance w/ meds. States dizziness worse w/ standing, tonight had near syncopal event w/ fall, hit head. On arrival, BP 119/56, HR 61, O2 sat 91 % on RA, Afebrile. Hemoglobin 10.6, previously 15.1 on 11/13/15. Platelets 139 , previously 178. Creatinine 2.50, producing 1.18 on 11/13/15. Troponin negative. INR 2.6. CXR with cardiomegaly. CT Head normal. Knee X-ray with no acute findings. S/p Lasix 80mg IV in ER. CBC/BMP: 08/23/17 1118 08/24/17 0545 Significant Findings Laboratory Tests Test 08/22/17 05:00 08/22/17 14:16 08/23/17 04:40 08/23/17 11:18 Red Blood Count 3.02 MIL/MM3 (4.50-5.90) 3.04 MIL/MM3 (4.50-5.90) Hemoglobin 10.4 GM/DL (13.0-17.0) 10.8 GM/DL (13.0-17.0) Hematocrit 30.6 % (39.0-51.0) 31.2 % (39.0-51.0) Mean Corpuscular Volume 101.2 FL (80.0-100.0) 102.5 FL (80.0-100.0) Mean Corpuscular Hemoglobin 34.6 PG (27.0-34.0) 35.5 PG (27.0-34.0) Platelet Count 141 TH/MM3 (150-450) 140 TH/MM3 (150-450) Blood Urea Nitrogen 45 MG/DL (7-18) 35 MG/DL (7-18) Creatinine 1.61 MG/DL (0.60-1.30) 1.75 MG/DL (0.60-1.30) Carbon Dioxide Level 20.2 MEQ/L (21.0-32.0) Estimat Glomerular Filtration Rate 43 ML/MIN (>89) 39 ML/MIN (>89) Prothrombin Time 35.3 SEC (9.8-11.6) 39.1 SEC (9.8-11.6) Random Glucose 148 MG/DL (74-106) Sodium Level 133 MEQ/L (136-145) Test 08/24/17 05:45 Prothrombin Time 31.6 SEC (9.8-11.6) Blood Urea Nitrogen 33 MG/DL (7-18) Creatinine 1.39 MG/DL (0.60-1.30) Sodium Level 134 MEQ/L (136-145) Estimat Glomerular Filtration Rate 51 ML/MIN (>89) Imaging Last Impressions Chest X-Ray 08/19/17 1837 Signed Impressions: Service Date/Time: Saturday, August 19, 2017 18:57 - CONCLUSION: 1. Cardiomegaly. The patient is status post sternotomy and has a pacing/AICD device in place. 2. Degenerative change and loose bodies of the left glenohumeral joint. Ralph English MD Knee X-Ray 08/19/17 0000 Signed Impressions: Service Date/Time: Saturday, August 19, 2017 18:58 - CONCLUSION: No acute disease. Ralph English MD Head CT 08/19/17 0000 Signed Impressions: Service Date/Time: Saturday, August 19, 2017 18:56 - CONCLUSION: Normal examination. Ralph English MD PE at Discharge GENERAL: sitting in chair in NAD NECK: Supple, trachea midline. No JVD or lymphadenopathy. CARDIOVASCULAR: Regular rate and rhythm, 3/6 systolic heart murmur heard best at the pulmonic area. RESPIRATORY: No accessory muscle use. GASTROINTESTINAL: Abdomen soft, non-tender, nondistended. MUSCULOSKELETAL: No cyanosis, trace extremity edema. Hospital Course 62-year-old male past medical history of CHF who presented with shortness of breathing and increased lower extremity edema Acute on chronic CHF exacerbation systolic and diastolic dysfunction -Echo showed EF of 45-50%, mild tricuspid regurgitation, and LVH. CXR w/ no acute findings with significant lower extremity edema bilaterally. -Home dose is 40 mg by mouth twice a day. Clinically patient is improving. Continue with Lasix 40 mg twice a day. -Continue to wean oxygen as tolerated. -Patient failed walk test will need home oxygen. Acute respiratory failure with hypoxia -See treatment as above. Patient is not on any home oxygen. Will need to wean off of oxygen as tolerated. Fall: - s/p near syncopal event w/ fall/head injury secondary to dizziness upon standing, likely from over-diuresis. - +forehead and knee abrasion, superficial. CT Head w/ no acute findings, Knee X-ray negative for fracture. Acute on chronic kidney disease stage 2: Creatinine 2.50, previously 1.18 on 08/18 -Cr improving. -Continue to hold MELISA. -Strict ins and outs. Avoid nephrotoxins. Continue monitor creatinine. Adjust accordingly. -Continue to monitor creatinine and urine output. A-fib: Chronic. -Continue with digoxin and Coumadin. Chronic anticoagulation -Due to atrial fibrillation. Continue monitor INR and adjust accordingly. Thrombocytopenia: - Mild. No active bleeding. -Platelets are stable. nose bleed -Bleeding is controlled. Most likely secondary to irritated/dried nasal canal from oxygen DVT Prophylaxis: On Coumadin. Pt Condition on Discharge: Stable Discharge Disposition: Disch w/ Home Health Serv Discharge Time: > 30 minutes Discharge Instructions DIET: Follow Instructions for: Heart Healthy Diet Activities you can perform: Regular-No Restrictions Activities to Avoid: Driving Follow up Referrals: Cardiology - 1 Week PCP Follow-up - 1 Week New Orders: BASIC METABOLIC PROF - 08/29/17 PT/INR New Medications: Oxygen (O2) (Oxygen (O2)) Device LITER RADHA.CANULA CONTINUOUS for Prevent Hypoxemia, #2 Oxygen Concentrator Portable Gaseous 2 L/min via Nasal Canula Continuous For 99 months Warfarin (Coumadin) 4 Mg Tab 4 MG PO DAILY@1600 for Prevent Blood Clot, #30 TAB keep INR 2-3 Continued Medications: Aspirin (Aspirin) 81 Mg Chew 81 MG PO ONCE, #1 TAB 0 Refills Carvedilol ER 24 HR (Coreg Cr 24 HR) 20 Mg Cap 20 MG PO DAILY, #30 CAP 0 Refills Digoxin (Digoxin) 0.25 Mg Tab 0.25 MG PO DAILY for Regulate Heart Beat, #30 TAB 0 Refills Furosemide (Lasix) 40 Mg Tab 40 MG PO BID, #60 TAB 0 Refills Discontinued Medications: Lisinopril (Lisinopril) 5 Mg Tab 5 MG PO DAILY for Blood Pressure Management, #30 TAB 0 Refills Warfarin (Warfarin) 5 Mg Tab 5 MG PO DAILY for Blood Clot Prevention, #30 TAB 0 Refills Amari Razo MD Aug 24, 2017 12:26
--- NOTE | 2017-08-24 15:54 | PD.CARD.PN ---
Subjective Subjective Remarks No events overnight Up and ambulating, not currently on oxygen Objective Medications Current Medications Medications (Trade) Dose Ordered Sig/Luciano Route Start Time Stop Time Status Last Admin (Lasix Inj) 40 mg BID@,18 IV PUSH 08/20/17 09:00 08/24/17 07:56 (NS Flush) 2 ml UNSCH PRN IV FLUSH 08/19/17 20:45 (NS Flush) 2 ml BID IV FLUSH 08/19/17 21:00 08/24/17 07:56 (Zofran Inj) 4 mg Q6H PRN IVP 08/19/17 20:45 (Tylenol) 650 mg Q6H PRN PO 08/19/17 20:45 ([place] 5-325 Mg) 1 tab Q4H PRN PO 08/19/17 20:45 (Morphine Inj) 2 mg Q3H PRN IV PUSH 08/19/17 20:45 (Dana-Colace) 1 tab BID PO 08/19/17 21:00 08/24/17 07:55 (Milk Of Magnesia Liq) 30 ml Q12H PRN PO 08/19/17 20:45 (Senokot) 17.2 mg Q12H PRN PO 08/19/17 20:45 (Dulcolax Supp) 10 mg DAILY PRN RECTAL 08/19/17 20:45 (Lactulose Liq) 30 ml DAILY PRN PO 08/19/17 20:45 (Lanoxin) 0.25 mg DAILY PO 08/20/17 09:00 08/24/17 07:54 (Coreg) 6.25 mg BID PO 08/20/17 09:00 08/24/17 07:55 (Aspirin Chew) 81 mg DAILY PO 08/20/17 09:00 08/24/17 07:55 Pharmacy Profile Note 0 ml @ 0 mls/hr UNSCH OTHER 08/20/17 08:15 (Baby [place]rard Saline 0.65% Obey Drp/ Charco) 6 drop UNSCH PRN EACH NARE 08/21/17 11:00 (Coumadin) 4 mg DAILY@1600 PO 08/24/17 16:00 Vital Signs / I&O Vital Signs Date Time Temp Pulse Resp B/P (MAP) Pulse Ox O2 Delivery O2 Flow Rate FiO2 08/24/17 12:00 97.9 66 20 109/59 (76) 95 08/24/17 08:00 98.9 72 18 115/59 (77) 92 08/24/17 07:44 94 Nasal Cannula 2.00 08/24/17 07:00 Nasal Cannula 3.00 08/24/17 04:29 Nasal Cannula 3.00 08/24/17 04:00 97.7 66 17 111/56 (74) 91 08/24/17 00:00 97.7 70 17 112/58 (76) 93 08/23/17 21:40 96 Nasal Cannula 3.00 08/23/17 21:34 Nasal Cannula 3.00 08/23/17 20:00 69 08/23/17 20:00 Nasal Cannula 3.00 08/23/17 20:00 97.5 64 17 109/52 (71) 92 08/23/17 16:00 97.7 52 18 101/55 (70) 93 I/O 08/23/17 08/23/17 08/23/17 08/24/17 08/24/17 08/24/17 07:00 15:00 23:00 07:00 15:00 23:00 Intake Total 480 ml 240 ml Output Total 900 ml 1150 ml 1750 ml Balance -420 ml -910 ml -1750 ml Intake Oral 480 ml 240 ml Output Urine Total 900 ml 1150 ml 1750 ml # Bowel Movements 1 Physical Exam GENERAL: NAD, AAOx3 SKIN: Warm and dry. HEAD: Atraumatic. Normocephalic. EYES: Pupils equal and round. No scleral icterus. No injection or drainage. ENT: No nasal bleeding or discharge. Mucous membranes pink and moist. NECK: Trachea midline. No JVD. CARDIOVASCULAR: Regular rate and rhythm. RESPIRATORY: No accessory muscle use. Clear to auscultation. Breath sounds equal bilaterally. GASTROINTESTINAL: Abdomen soft, non-tender, nondistended. Hepatic and splenic margins not palpable. MUSCULOSKELETAL: Trace edema NEUROLOGICAL: Awake and alert. No obvious cranial nerve deficits. Motor grossly within normal limits. Five out of 5 muscle strength in the arms and legs. Normal speech. PSYCHIATRIC: Appropriate mood and affect; insight and judgment normal. Laboratory Laboratory Tests Test 08/24/17 05:45 Prothrombin Time 31.6 SEC Prothromb Time International Ratio 2.7 RATIO Blood Urea Nitrogen 33 MG/DL Creatinine 1.39 MG/DL Random Glucose 95 MG/DL Calcium Level 8.7 MG/DL Magnesium Level 1.7 MG/DL Sodium Level 134 MEQ/L Potassium Level 3.5 MEQ/L Chloride Level 100 MEQ/L Carbon Dioxide Level 24.5 MEQ/L Anion Gap 10 MEQ/L Estimat Glomerular Filtration Rate 51 ML/MIN Assessment and Plan Problem List: (1) CHF exacerbation ICD Codes: I50.9 - Heart failure, unspecified Status: Acute (2) Hypoxia ICD Codes: R09.02 - Hypoxemia (3) Respiratory failure ICD Codes: J96.90 - Respiratory failure, unspecified, unspecified whether with hypoxia or hypercapnia (4) TOMMY (acute kidney injury) ICD Codes: N17.9 - Acute kidney failure, unspecified (5) A-fib ICD Codes: I48.91 - Unspecified atrial fibrillation Assessment and Plan 1) Acute CHF exacerbation, currently compensated 2) EKG with mild ischemic changes Discussed with the patient, previous stress test around 2 years ago Discussed ischemia as a possible cause of heart failure, although less likely as his weights have been steadily increasing More than likely dietary excess of salt Given the option of stress testing, and if positive then would consider staying for cardiac catheterization He would like to be discharged and plan to follow up with his [facility] in [place] for consideration of ischemic evaluation, has an appointment the day he gets back 3) Cardiovascularly stable for discharge 4) Alert from ICD because SVC coil, SVC coil turned off 5) If further symptoms, instructed to return to the hospital Robin Montano DO Aug 24, 2017 15:54
[2017-08-24 16:00] VITALS: BP 113/57; PULSE 68; RESP 20; TEMP 97.1; O2SAT 90
[2017-08-24] MEDS ORDERED: WARFARIN SOD 4 MG TAB PO SCH (16:00)
== END 2017-08-24 17:40 | disposition home or self-care (01) | DRG 682 ==
LOC: NEPE 18:13 → NEDA 20:35 → N04B 22:05
PROVIDERS: ADMIT Internal Medicine; ATTEND Internal Medicine
DX: N17.9 Acute kidney failure, unspecified (principal); J96.01 Acute respiratory failure with hypoxia; I50.23 Acute on chronic systolic (congestive) heart failure; I13.0 Hypertensive heart and chronic kidney disease with heart failure and stage 1 through stage 4 chronic kidney disease, or unspecified chronic kidney disease; E11.22 Type 2 diabetes mellitus with diabetic chronic kidney disease; D69.6 Thrombocytopenia, unspecified; S09.90XA Unspecified injury of head, initial encounter; I48.2 Chronic atrial fibrillation; R55 Syncope and collapse; S80.219A Abrasion, unspecified knee, initial encounter; R04.0 Epistaxis; I07.1 Rheumatic tricuspid insufficiency; N18.2 Chronic kidney disease, stage 2 (mild); I25.2 Old myocardial infarction; T50.2X5A Adverse effect of carbonic-anhydrase inhibitors, benzothiadiazides and other diuretics, initial encounter; I25.10 Atherosclerotic heart disease of native coronary artery without angina pectoris; R79.1 Abnormal coagulation profile; W19.XXXA Unspecified fall, initial encounter; Z79.01 Long term (current) use of anticoagulants; Z87.891 Personal history of nicotine dependence; Z91.11 Patient's noncompliance with dietary regimen; Z95.1 Presence of aortocoronary bypass graft; Z95.810 Presence of automatic (implantable) cardiac defibrillator
CPT/HCPCS: 70450; 71010; 73564; 80048; 80053; 80162; 82550; 82552; 83735; 83880; 84100; 84443; 84484; 85025; 85027; 85610; 85730; 93005; 93306; 94620; 96374; J1940; J7042